=== PATIENT | male | born 1960 | race Caucasian/White ===

== ENCOUNTER 2023-03-18 03:22 | Outpatient (CLI) | payer OTHER, SELFPAY | END 2023-03-18 03:23 | disposition home or self-care (01) | LOC: AMB 03-30 03:00 | PROVIDERS: PCP Student in an Organized Health Care Education/Training Program; Visit Provider Family Medicine | DX: S99.911A Unspecified injury of right ankle, initial encounter (principal); S09.90XA Unspecified injury of head, initial encounter; W18.30XA Fall on same level, unspecified, initial encounter; Y92.008 Other place in unspecified non-institutional (private) residence as the place of occurrence of the external cause | CPT/HCPCS: A0425; A0429 ==

== ENCOUNTER 2023-03-18 03:55 | Inpatient (IN) | payer OTHER, SELFPAY ==
[2023-03-18] VITALS (38 sets, daily range): BP systolic 95–164; BP diastolic 60–130; PULSE 41–88; RESP 9–33; TEMP 35.8–36.6; O2SAT 88–100; BMI 23.0
--- NOTE | 2023-03-18 04:15 | CRLHL7_ITS ---
For Patients: As a result of the Century Cures Act, medical imaging exams and procedure reports are released immediately into your electronic medical record. You may view this report before your referring provider. If you have questions, please contact your health care provider. INDICATION: Injury COMPARISON: April 23, 2020 TECHNIQUE: CT examination of the cervical spine is performed without contrast using spiral technique. Thin axial, sagittal and coronal reconstructions were made. Please note that all CT scans at this facility use dose modulation, iterative reconstruction, and/or weight-based dosing when appropriate to reduce radiation dose to as low as reasonably achievable. FINDINGS: : Bone mineral density is decreased. There is an incidental osseous hemangioma of the T5 vertebral body. Significant degenerative changes are noted mainly of the mid and lower cervical spine. A 2 millimeter degenerative anterolisthesis of C4 on C5 is noted. There is no acute fracture, dislocation or destructive process. Incidental atherosclerotic vascular calcifications. A small amount of fluid is noted in the mastoids, likely inflammatory. IMPRESSION: No acute fracture, dislocation or destructive process Please note that all CT scans at this facility use dose modulation, iterative reconstruction, and/or weight-based dosing when appropriate to reduce radiation dose to as low as reasonably achievable. Dictated by Collins Lara MD @ 03/18/2023 5:44:14 AM (Electronically Signed)
--- NOTE | 2023-03-18 04:15 | CRLHL7_ITS ---
For Patients: As a result of the Century Cures Act, medical imaging exams and procedure reports are released immediately into your electronic medical record. You may view this report before your referring provider. If you have questions, please contact your health care provider. INDICATION: Unwitnessed fall COMPARISON: April 23, 2020 TECHNIQUE: CT examination of the head was performed as axial sections without intravenous contrast. Images were obtained from the vertex of the skull through the skull base. Please note that all CT scans at this facility use dose modulation, iterative reconstruction, and/or weight-based dosing when appropriate to reduce radiation dose to as low as reasonably achievable. FINDINGS: The brain shows no sign of mass lesion, mass effect, hemorrhage, or edema. There are involutional changes. There is moderate cortical atrophy and there is moderate white matter disease. There is no hydrocephalus. There is cerebellar atrophy. Nonacute subcortical infarcts are noted. The visualized portions of the orbits are normal in appearance. The osseous structures are normal in appearance with no sign of abnormality in the skull base or calvarium. The overall appearance of the CT is stable when compared to April 23, 2020 IMPRESSION: Involutional changes. No acute-appearing findings. Similar overall appearance when compared to April 23, 2020. Please note that all CT scans at this facility use dose modulation, iterative reconstruction, and/or weight-based dosing when appropriate to reduce radiation dose to as low as reasonably achievable. Dictated by Collins Lara MD @ 03/18/2023 5:36:32 AM (Electronically Signed)
--- NOTE | 2023-03-18 04:15 | CRLHL7_ITS ---
For Patients: As a result of the Century Cures Act, medical imaging exams and procedure reports are released immediately into your electronic medical record. You may view this report before your referring provider. If you have questions, please contact your health care provider. Indication: Injury Technique: A total of two views of the right tibia and fibula were acquired. Comparison: None Findings: Bones: Demineralization. Acute oblique fracture of the distal tibia. Minimally displaced by about 3 millimeters maximum. There is also probably an oblique fracture of the distal fibula notice on inferior whether this is acute or chronic. A fracture line is visible in this area. Consider a formal three-view ankle exam Joint spaces: Unremarkable. Soft tissues: Extensive soft tissue calcifications Impression: Acute oblique fracture of the distal tibia, minimally displaced. Distal fibular fracture age indeterminate. Consider a three-view ankle for better evaluation of the distal fibula. Extensive vascular and soft tissue calcifications noted Dictated by Collins Lara MD @ 03/18/2023 5:29:11 AM (Electronically Signed)
--- NOTE | 2023-03-18 04:21 | ED_ITS ---
HPI - Fall General Chief Complaint: Fall/Minor Trauma Stated Complaint: fall, altered mental status, Ankle Pain Time Seen by Provider: 03/18/23 04:01 Source: patient, family and EMS History of Present Illness HPI Narrative: 8-year-old male with a history of MS presents to the emergency department with altered mental status after a fall. Apparently his called 911 after he fell in the home. Reports that he was coming back from the computer room. He gives extremely limited history, very limited history was obtained by EMS as well. It sounds as though they thought the may be intoxicated and may not be a very accurate historian. Apparently, the patient fell sometime tonight. It is uncertain if he is on anticoagulants. He has been complaining of right ankle pain, no other injuries. He answers questions very poorly and has difficulty maintaining alertness. EMS gives no other history other than that he has MS. We non do not know his medications but will attempt to failure these out. Denies any recent surgeries. It is quite clear he has had toe amputations and homes or abdominal surgery based on surgical scarring. Again, very limited history. ROS is not considered reliable but he does deny all concerns with the exception of right ankle pain. PFSH PFS Social History Smoking Status: Former smoker Non-prescribed substance use: marijuana (any form) Exam Const: Vital Signs, click to edit/add: Vital Signs - 24 hr 03/18/23 03:59 03/18/23 05:13 03/18/23 05:20 Temperature 96.5 F L Pulse Rate 45 L 44 L Pulse Rate [Right Pulse Oximeter] 55 L Respiratory Rate 16 Blood Pressure Blood Pressure [Le ft Upper Arm] 118/71 Pulse Oximetry 98 89 88 Oxygen Delivery Me thod Room Air 03/18/23 05:23 03/18/23 05:30 03/18/23 05:31 Temperature Pulse Rate 55 L 45 L 48 L Pulse Rate [Right Pulse Oximeter] Respiratory Rate 24 20 Blood Pressure 137/87 139/84 Blood Pressure [Le ft Upper Arm] Pulse Oximetry 100 98 91 Oxygen Delivery Me thod 03/18/23 05:32 03/18/23 05:40 03/18/23 05:41 Temperature Pulse Rate 47 L 44 L 42 L Pulse Rate [Right Pulse Oximeter] Respiratory Rate 21 22 33 H Blood Pressure 124/65 Blood Pressure [Le ft Upper Arm] Pulse Oximetry 94 91 96 Oxygen Delivery Pr thod 03/18/23 05:50 03/18/23 05:52 03/18/23 06:00 Temperature Pulse Rate 41 L 52 L 59 L Pulse Rate [Right Pulse Oximeter] Respiratory Rate 28 H 19 12 Blood Pressure 164/124 H Blood Pressure [Le ft Upper Arm] Pulse Oximetry 95 100 96 Oxygen Delivery Pr thod 03/18/23 06:02 03/18/23 06:10 03/18/23 06:13 Temperature Pulse Rate 55 L 48 L 61 Pulse Rate [Right Pulse Oximeter] Respiratory Rate 22 20 14 Blood Pressure 160/128 H 133/76 Blood Pressure [Le ft Upper Arm] Pulse Oximetry 93 98 98 Oxygen Delivery Pr thod 03/18/23 06:20 03/18/23 06:22 03/18/23 06:30 Temperature Pulse Rate 50 L 48 L 46 L Pulse Rate [Right Pulse Oximeter] Respiratory Rate 20 Blood Pressure 136/81 Blood Pressure [Le ft Upper Arm] Pulse Oximetry 97 98 94 Oxygen Delivery Pr thod 03/18/23 06:32 03/18/23 06:40 03/18/23 06:42 Temperature Pulse Rate 49 L 52 L 58 L Pulse Rate [Right Pulse Oximeter] Respiratory Rate 10 L 13 15 Blood Pressure 135/83 130/96 H Blood Pressure [Le ft Upper Arm] Pulse Oximetry 96 99 93 Oxygen Delivery Pr thod 03/18/23 06:50 Temperature Pulse Rate Pulse Rate [Right Pulse Oximeter] Respiratory Rate 21 Blood Pressure Blood Pressure [Le ft Upper Arm] Pulse Oximetry 92 [facility] provider has reviewed patient's vital signs: yes Other: Decreased alertness. Repetitive answers. Will follow commands when you get his attention. Global weakness. HENMT: Other: Slight abrasions on the forehead, no large deformities or skull fractures. No signs of significant facial injury. I cannot get to his TMs due to the positioning of the C-collar at the moment. Oropharynx with acyanotic lips, moist membranes. Eye: Common normals: PERRL and EOMs intact bilaterally Pupil: PERRL Neck & C-Spine: Other: C-collar in place. No obvious deformity or point tenderness with palpation through windows. Chest: Common normals: inspection of chest normal and palpation of chest no rmal Resp: Common normals: normal respiratory effort, no use of accessory muscles and clear to auscultation bilaterally Auscultation: clear to auscultation bilaterally Other: Decreased at the bases but no obvious crackles. 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 Various abrasions on lower legs, no obvious deformity. He can flex extend and rotate the right ankle with no difficulty. There is no obvious point bony tenderness to palpation. The range of motion in the left ankle appears normal with no point bony tenderness as well. Neuro: Antonio Coma Scale: document GCS findings [place] coma scale eye opening: To sound (3) Antonio coma scale verbal response: Confused (4) [place] coma scale motor response: Obey commands (6) Antonio coma scale total score: 13 Other: Global generalized weakness makes neurological exam difficult to interpret. It does not seem as though there is an obvious focal singular deficit. Will need re-evaluation. Psych: Other: Mildly unkempt. Healed abrasions in various stages of healing. Polite and cooperative but difficulty maintaining full alertness. Skin: Narrative: Superficial abrasions and bruises in various stages of healing. Extremities, forehead. Course Course Hospital Course: Differential diagnosis including intoxication, closed head injury, intracranial hemorrhage, C-spine injury, metabolic etiology such as sepsis, electrolyte derangement, infection, among others. Biggest concern for head and neck injury. Will begin with CT scan of the head and neck as well as x-ray of the ankle. Labs to look for any cause of altered mental status, repeat evaluation. IV will be placed, normal saline given. Await findings. Will need admission. Reevaluation(s) Time of Reevaluation #1: 05:40 Reevaluation #1: Patient becoming more alert. Mild asymptomatic bradycardia noted. IV fluids have been started. He admits to drinking a couple of beverages of alcohol earlier in the night but admits to the marijuana use, no other illicit substances. He is unable to clearly tell me his last meal. He is complaining of a headache and does maintain alertness better. Ortho will be paged. Time of Reevaluation #2: 06:21 Reevaluation #2: Bradycardia is improving with fluids, patient will maintain alertness a little bit longer but is still overall drowsier than would be expected. He keeps mentioning headache. He keeps freely moving his leg, getting it stuck between the bed rails. I actually do wonder about the acuity of this fracture. Ortho team is informing me that they would like to take him to the operating room promptly, I do not think this is a good idea due to his altered mental status which I do think is more from drug intoxication than medical etiology after review of the labs. Would encourage a period of observation, oral pain control if needed, then operative repair. He will likely need longterm facility. I suspect that he is having neurological decline based on his head CT and overall functional status here in the ED. There lots of abrasions to his legs, I suspect he is falling frequently. I suspect that this fracture is actually not acute, may be several days old. Thankfully there is no evidence of cervical spine or intracranial hemorrhage or injury. I will communicate this to the Orthopedics team. Vital Signs Vital signs: Initial Vital Signs Temperature 96.5 F L 03/18/23 03:59 Temperature Source Temporal Artery Scan 03/18/23 03:59 Pulse Rate 55 L 03/18/23 03:59 Pulse Rhythm Regular 03/18/23 03:59 Respiratory Rate 16 03/18/23 03:59 Blood Pressure 118/71 03/18/23 03:59 Blood Pressure Mean 86 03/18/23 03:59 Blood Pressure Position Semi-Fowlers 03/18/23 03:59 Pulse Oximetry 98 03/18/23 03:59 Oxygen Delivery Method Room Air 03/18/23 03:59 Vital Signs Temperature 96.5 F L 03/18/23 03:59 Pulse Rate 55 L 03/18/23 03:59 Respiratory Rate 16 03/18/23 03:59 Blood Pressure 118/71 03/18/23 03:59 Pulse Oximetry 98 03/18/23 03:59 Oxygen Delivery Method Room Air 03/18/23 03:59 Temperature 96.5 F L 03/18/23 03:59 Pulse Rate 58 L 03/18/23 06:42 Respiratory Rate 21 03/18/23 06:50 Blood Pressure 130/96 H 03/18/23 06:42 Pulse Oximetry 92 03/18/23 06:50 Oxygen Delivery Method Room Air 03/18/23 03:59 MDM - Fall MDM Narrative Medical decision making narrative: Differential diagnosis including fracture, head injury, cervical spine injury, metabolic derangement, intoxication, among others. Update: Accepted by hospitalist, will admit for acute delirium. I do not feel like in his current state that he can consent for surgical procedure just yet but hopefully within a few more hours his mentation clears and surgery can be planned. Lab Data Attestation: I reviewed the patient's lab results. Lab results narrative: Reassuring overall Labs: Lab Results 03/18/23 03/18/23 Range/Units 04:17 04:20 WBC 8.62 (4.50-11.00) K/uL RBC 4.57 (4.30-5.90) m/uL Hgb 12.5 L (13.5-17.5) gm/dL Hct 39.6 (37.0-53.0) % MCV 87 (80-100) fL MCH 27 (26-34) pg MCHC 32 (32-36) gm/dL RDW Coeff of Na 14.7 (11.5-15.5) % Plt Count 232 (140-440) K/uL Neut % (Auto) 81.9 H (42.0-72.0) % Lymph % (Auto) 8.8 L (20-44) % [place] % (Auto) 7.3 (0.0-11.0) % Eos % (Auto) 1.6 (0.0-7.0) % Baso % (Auto) 0.3 (0.0-3.0) % Neut # (Auto) 7.10 H (1.7-7.0) K/uL Lymph # (Auto) 0.80 L (0.90-2.90) K/uL [place] # (Auto) 0.60 (0.00-0.90) K/UL Eos # (Auto) 0.14 (0.00-0.50) K/uL Baso # (Auto) 0.03 (0.00-0.30) K/uL VBG pH 7.347 (7.32-7.43) VBG pCO2 38 L (40-50) mmHG VBG pO2 63.8 H (25-47) mmHG VBG HCO3 21 (21-28) mmol/L Sodium 140 (135-149) mmol/L Potassium 4.3 (3.6-5.1) mmol/L Chloride 109 (96-114) mmol/L Carbon Dioxide 19 L (20-32) mmol/L BUN 20 (7-30) mg/dL Creatinine 1.2 (0.5-1.5) mg/dL Estimated GFR 69 ml/min Glucose 88 (60-115) mg/dL Lactate 0.8 (0.5-1.9) mmol/L Calcium 9.0 (8.4-10.6) mg/dL Total Bilirubin 0.7 (0.1-1.5) mg/dL AST 36 H (12-35) U/L ALT 15 (4-50) U/L Alkaline Phosphatase 112 (40-150) U/L Ammonia < 9.0 L (13.1-30.0) umol/L C-Reactive Protein 0.6 (0.5-1.0) mg/dL Total Protein 6.7 (6.0-8.3) g/dL Albumin 4.1 (3.3-5.0) g/dL Ethyl Alcohol < 0.01 L (0.01-0.03) % POC Troponin I 0.00 L (0.01-0.04) ng/ml Imaging Data CT scan - head: Attestation: I have reviewed the pertinent imaging results. My impression: Marked degenerative changes for age but no signs of acute intracranial hemorrhage or skull fracture Radiologist's impression: IMPRESSION: Involutional changes. No acute-appearing findings. Similar overall appearance when compared to April 23, 2020. CT cervical spine: Attestation: I have reviewed the pertinent imaging results. My impression: Mild degenerative changes, otherwise normal Radiologist's impression: IMPRESSION: No acute fracture, dislocation or destructive process X-ray tibia right: Attestation: I have reviewed the pertinent imaging results. My impression: Tib-fib fracture fairly well aligned. Radiologist's impression: Impression: Acute oblique fracture of the distal tibia, minimally displaced. Distal fibular fracture age indeterminate. Consider a three-view ankle for better evaluation of the distal fibula. Extensive vascular and soft tissue calcifications noted ECG Data Attestation: I personally reviewed and interpreted this ECG as follows: Prior ECG tracings: not available for review Interpretation: Sinus bradycardia, rate 44-57. No obvious ischemic changes noted. Discharge Plan Discharge Clinical Impression: Acute delirium, Closed fracture of right tibia and fibula Follow Up/Referrals: Mil Dasilva MD [Primary Care Provider] -
[2023-03-18 04:42] LABS: HCO3 VBG 21 mmol/L (21-28); Lactate* 0.8 mmol/L (0.5-1.9); PCO2 VBG 38 mmHG (40-50); PO2 VBG 63.8 mmHG (25-47); pH VBG 7.347 (7.32-7.43)
[2023-03-18 04:45] LABS: Hematocrit 39.6 % (37.0-53.0); Hemoglobin* 12.5 gm/dL (13.5-17.5); Mean Corpuscular HGB Conc 32 gm/dL (32-36); Mean Corpuscular Hemoglobin 27 pg (26-34); Mean Corpuscular Volume 87 fL (80-100); Neutrophils Percent Auto 81.9 % (42.0-72.0); Platelet Count* 232 K/uL (140-440); RDW Coefficient of Variation % 14.7 % (11.5-15.5); Red Blood Count 4.57 m/uL (4.30-5.90); White Blood Count* 8.62 K/uL (4.50-11.00)
[2023-03-18 04:46] LABS: Basophils Absolute Auto 0.03 K/uL (0.00-0.30); Basophils Percent Auto 0.3 % (0.0-3.0); Eosinophils Absolute Auto 0.14 K/uL (0.00-0.50); Eosinophils Percent Auto 1.6 % (0.0-7.0); Immature Granulocytes Abs Auto 0.01 K/uL (0.00-0.30); Immature Granulocytes Pct Auto 0.1 %; Lymphocytes Percent Auto 8.8 % (20-44); Monocytes Percent Auto 7.3 % (0.0-11.0)
[2023-03-18 04:50] LABS: Slide Review Reflex No
[2023-03-18 04:59] LABS: Albumin* 4.1 g/dL (3.3-5.0); Chloride* 109 mmol/L (96-114)
[2023-03-18 05:00] LABS: Potassium* 4.3 mmol/L (3.6-5.1); Sodium* 140 mmol/L (135-149)
[2023-03-18 05:02] LABS: Bilirubin Total* 0.7 mg/dL (0.1-1.5); Creatinine* 1.2 mg/dL (0.5-1.5); Estimated Glomerular Filt Rate 69 ml/min
[2023-03-18 05:03] LABS: Alanine Aminotransferase* 15 U/L (4-50); Alkaline Phosphatase* 112 U/L (40-150); Aspartate Amino Transferase* 36 U/L (12-35); Blood Urea Nitrogen* 20 mg/dL (7-30); Carbon Dioxide* 19 mmol/L (20-32); Glucose* 88 mg/dL (60-115); Total Protein* 6.7 g/dL (6.0-8.3)
[2023-03-18 05:05] LABS: C Reactive Protein* 0.6 mg/dL (0.5-1.0)
[2023-03-18 05:08] LABS: Ethanol* < 0.01 % (0.01-0.03)
[2023-03-18 05:09] LABS: Ammonia* < 9.0 umol/L (13.1-30.0)
[2023-03-18] MEDS: 0.9 % SODIUM CHLORIDE 500 ML 500 ML 1000 ML IV (06:27)
[2023-03-18] MEDS: ACETAMINOPHEN 500 MG TABLET 1000 MG PO (06:43)
--- NOTE | 2023-03-18 07:45 | ED.NURSE ---
pt aroused to voice and a shake. pt oriented and remembers falling at home. pt starts becoming restless in bed, pt moving R lower extremity all over, keeps putting R foot through bed rails. changed pt into gown, placed seizure pad on bed so pt can't put foot through rail. elevated R foot and ice applied. repositioned pt for comfort. pt said he needs to go to bathroom, gave pt urinal. pt difficulty holding urinal and urinating so straight cathed pt for 300 cc clear yellow urine, sample sent to lab. remains restless in bed.
[2023-03-18 08:07] LABS: Appearance Urine Clear (Clear); Bilirubin Urine Negative (Negative); Blood Urine Trace-lysed (Negative); Color Urine Yellow (Yellow); Glucose Urine Negative (Negative); Ketones Urine Trace (Negative); Leukocyte Esterase Urine Negative (Negative); Nitrite Urine Negative (Negative); Protein Urine Negative (Negative); Urobilinogen Urine 0.2 (0.2-1.0); pH Urine 5.5 (5.0-8.5)
[2023-03-18] MEDS: OXYCODONE 5 MG TABLET PO ×2 (08:13→17:22)
[2023-03-18 08:14] LABS: Amphetamine Screen Urine Negative (Negative); Barbiturate Screen Urine Negative (Negative); Benzodiazepines Screen Urine Negative (Negative); Cocaine Screen Urine Negative (Negative); Methadone Screen Urine Negative (Negative); Methamphetamines Screen Urine Negative (Negative); Opiate Screen Urine Negative (Negative); Oxycodone Screen Urine Negative (Negative); Phencyclidine Screen Urine Negative (Negative); Tricyclic Antidepressant Urine Negative (Negative)
[2023-03-18 08:16] LABS: Cannabinoid Screen Urine POSITIVE (Negative)
[2023-03-18 08:22] LABS: Bacteria Urine Few; Mucus Urine Few; Squamous Epithelial Cell Urine Few (None-Few); WBC Urine 0-2 (0-5)
--- NOTE | 2023-03-18 10:01 | RESP.RT ---
Patient SATing 100% on 1L NC. Patient weaned to room air. Patient is still hard to stimulate, but appears to have a normal RR. When he is laying flat on his back he does have apnic periods, but he is currently sleeping on his side.
[2023-03-18] MEDS: LACTATED RINGERS 1000 ML 1,000 ML 125 ML IV ×2 (11:00→21:15)
[2023-03-18] MEDS: SODIUM CHLORIDE 0.9 % (FLUSH) 10 ML SYRINGE 5 ML IVF (11:00)
--- NOTE | 2023-03-18 11:27 | P.IMHP_ITS ---
Hospitalist- H&P: HPI History of Present Illness Time Seen by Provider: 07:15 Date Seen: 03/18/23 Chief complaint: Right ankle pain and altered level of mentation Narrative: Tom Ruibo is a 62 year old man with known multiple sclerosis and chronic non intractable headache who presents to our emergency department after his called 911 subsequent to a fall that he sustained in the home. Patient's altered mental status makes it difficult to obtain meaningful history from him. According to the EMS staff who responded to the 's call, they were unable to obtain a meaningful history from the also, they indicated that she seemed to be intoxicated when they were there responding to her call to help her . When I 1st see the patient this morning he is sound asleep and not arousable, except for to deep pain stimuli and then he promptly falls asleep again. Between my efforts, the efforts of the emergency department nursing staff, and our emergency department physician's efforts, we are able to ascertain that he may have consumed 2 cans of beer last night and he did smoke marijuana. It is unclear if he took his usual medications. He denies taking any medications or drugs other than his usual medications. Subsequently I assess the patient often on throughout the morning. Over time it gradually becomes more arousable. He again claims he has no recall of when or how he fell. He has no recall of being brought to our emergency department this morning. Although I tell him that he is in the hospital and that we are monitoring him to make certain that he arouses before we can obtain consent to treat his right distal tib-fib fracture, he reiterates that he is not certain what is going on or why he is here and that he wishes to go home as soon as possible. Review of Systems Status of ROS: Reports: 10 or more systems reviewed and unremarkable except as noted in History and below Narrative: Denies chest heaviness, pressure, tightness, or pain. Denies dyspnea at rest, dyspnea with exertion, paroxysmal nocturnal dyspnea, orthopnea. Denies syncope or near-syncope. Denies lightheadedness, dizziness, vertigo. He has little recall of the last several hours. Does not recall falling despite having skin superficial abrasions on his forehead and top of the scalp, and abrasions on his right elbow, both knees, shins, right foot. Initially indicates he does not ordinarily have falls. Later tells me that actually he does have falls at home intermittently. Denies abdominal pain, nausea, vomiting, diarrhea. Denies dysuria, urgency, frequency, hematuria. Denies polyuria, polydipsia, polyphagia. Denies fevers, rigors, diaphoresis. No recent travel. Acknowledges drinking alcohol regularly. Denies alcohol withdrawal symptoms. Smokes marijuana regularly as well. Denies use of any other street or recreational drugs. 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 (ICD-10) Lumbar spondylosis ?M47.816 - Spondylosis without myelopathy or radiculopathy, lumbar region (ICD-10) Abscess of right thigh ?L02.415 - Cutaneous abscess of right lower limb (ICD-10) Amputation of right great toe ?S98.111A - Complete traumatic amputation of right great toe, initial encounter (ICD-10) Chronic pain of right ankle ?M25.571 - Pain in right ankle and joints of right foot (ICD-10) ?G89.29 - Other chronic pain (ICD-10) Generalized hyperhidrosis ?R61 - Generalized hyperhidrosis (ICD-10) Seasonal allergies ?J30.2 - Other seasonal allergic rhinitis (ICD-10) Bilateral shoulder pain ?M25.511 - Pain in right shoulder (ICD-10) ?M25.512 - Pain in left shoulder (ICD-10) Optic atrophy ?H47.20 - Unspecified optic atrophy (ICD-10) Multiple pulmonary nodules ?R91.8 - Other nonspecific abnormal finding of lung field (ICD-10) Insomnia ?G47.00 - Insomnia, unspecified (ICD-10) History of falling ?Z91.81 - History of falling (ICD-10) Unstable gait ?R26.81 - Unsteadiness on feet (ICD-10) Ataxia ?R27.0 - Ataxia, unspecified (ICD-10) Anemia ?D64.9 - Anemia, unspecified (ICD-10) Sleep pattern disturbance ?G47.20 - Circadian rhythm sleep disorder, unspecified type (ICD-10) Obstructive sleep apnea ?G47.33 - Obstructive sleep apnea (adult) (pediatric) (ICD-10) Chronic headaches ?R51.9 - Headache, unspecified (ICD-10) ?G89.29 - Other chronic pain (ICD-10) Raynaud's syndrome ?I73.00 - Raynaud's syndrome without gangrene (ICD-10) Habitual alcohol use ?F10.90 - Alcohol use, unspecified, uncomplicated (ICD-10) Vapes nicotine containing substance ?Z72.0 - Tobacco use (ICD-10) Former smoker ?Z87.891 - Personal history of nicotine dependence (ICD-10) Essential hypertension ?I10 - Essential (primary) hypertension (ICD-10) Displacement of lumbar intervertebral disc without myelopathy ?M51.26 - Other intervertebral disc displacement, lumbar region (ICD-10) Lumbar disc herniation with radiculopathy ?M51.16 - Intervertebral disc disorders with radiculopathy, lumbar region (ICD-10) Multiple sclerosis ?G35 - Multiple sclerosis (ICD-10) Bilateral inguinal hernia ?K40.20 - Bilateral inguinal hernia, without obstruction or gangrene, not specified as recurrent (ICD-10) Surgical History Status post vasectomy ?Z98.52 - Vasectomy status (ICD-10) Status post amputation of right great toe ?Z89.411 - Acquired absence of right great toe (ICD-10) Hx of bursectomy ?Z98.890 - Other specified postprocedural states (ICD-10) S/P bilateral inguinal herniorrhaphy ?Z98.890 - Other specified postprocedural states (ICD-10) ?Z87.19 - Personal history of other diseases of the digestive system (ICD-10) S/p bilateral carpal tunnel release ?Z98.890 - Other specified postprocedural states (ICD-10) Status post left hip replacement ?Z96.642 - Presence of left artificial hip joint (ICD-10) Family History Father Diabetes Social History What is your current living situation: unable to answer Problems where you live: unable to answer In the past 12 months, utilities in danger of being shut off: unable to answer In the past 12 mos, have been you worried that your food would run out before you had money to buy more?: unable to answer In the past 12 mos, the food you bought just didn't last and you didn't have money to buy more?: unable to answer Highest level of school completed/degree received: decline to answer Smoking Status: Current every day smoker Do you use any of these nicotine containing products: Vaping Products Smokeless tobacco user: other Smokeless tobacco user details: marijuana Second hand tobacco smoke exposure: No How many standard drinks containing alcohol do you have on a typical day: 5 or 6 How often do you have six or more drinks on one occasion: Daily or almost daily AUDIT-C Alcohol total score: 6 Non-prescribed substance use: marijuana (any form) Non-prescribed substance use details: from medical hx How often does anyone, including family, friends and others, physically hurt you : How often does anyone, including family, friends and others, insult or talk down to you: How often does anyone, including family, friends and others, threaten you with harm: How often does anyone, including family, friends and others, scream or curse at you: service: No Meds Home Medications and Allergies Home Medications Medication Instructions Recorded Confirmed Type baclofen 20 mg tablet 40 mg PO TID 03/18/23 03/18/23 History gabapentin 400 mg capsule 1,200 mg PO TID 03/18/23 03/18/23 History ibuprofen 800 mg tablet 800 mg PO TID 03/18/23 03/18/23 History metoprolol tartrate 50 mg tablet 50 mg PO BID 03/18/23 03/18/23 History trazodone 100 mg tablet 100 mg PO QPM 03/18/23 03/18/23 History Allergies Allergy/AdvReac Type Severity Reaction Status Date / Time No Known Drug Allergies Allergy Verified 03/18/23 08:21 Exam Narrative: Exam Narrative: Appears older than stated age. When I 1st meet him he is somnolent and very difficult to arouse except for with deep pain. Corneal reflexes intact. Absent gag reflex. Had apneic breathing pattern when I 1st assessed him, not breathing up to 10-15 seconds at times, followed by rapid breathing - known to have obstructive sleep apnea. In time he is awake and talkative and interactive. He is able to swallow without gagging. Anxious, poor insight into his present situation and circumstances. No recall of events of last several hours, nature of the fall that caused his right distal tib-fib fracture, how he arrived at the hospital. Mood and affect are congruent. Vision and hearing are grossly normal. Dry buccal mucosa with dentition in fair repair. Tympanic membranes are normal bilaterally. Midline trachea, normal thyroid. No JVD, hepatojugular reflux, or carotid bruits. No lymphadenopathy. Lungs are clear to auscultation without wheezing, rhonchi, or rales. No CVA tenderness. Heart tones with regular rhythm, normal S1-S2, soft systolic murmur left lower sternal border. PMI is not laterally displaced. Abdomen with active bowel sounds, soft, nontender. No rebound or guarding. Skin with abrasions on forehead, top of scalp, partially around right eye orbit, right elbow, both knees, post shins, right foot. Also has ecchymosis of various ages on both upper and lower extremities. Very difficult for him to transfer. Needs assist of 2. Blood alcohol level is nonmeasurable. Urine toxicology screen is negative except for marijuana. Const: Vital Signs, click to edit/add: Vital Signs - 24 hr 03/18/23 03:59 03/18/23 05:13 03/18/23 05:20 Temperature 96.5 F L Pulse Rate 45 L 44 L Pulse Rate [Left A pical] Pulse Rate [Right Pulse Oximeter] 55 L Respiratory Rate 16 Blood Pressure Blood Pressure [Le ft Upper Arm] 118/71 Blood Pressure [Ri ght Arm] Pulse Oximetry 98 89 [facility] 03/18/23 05:23 03/18/23 05:30 03/18/23 05:31 Temperature Pulse Rate 55 L 45 L 48 L Pulse Rate [Left A pical] Pulse Rate [Right Pulse Oximeter] Respiratory Rate 24 20 Blood Pressure 137/87 139/84 Blood Pressure [Le ft Upper Arm] Blood Pressure [Ri ght Arm] Pulse Oximetry 100 98 91 Oxygen Delivery Me thod 03/18/23 05:32 03/18/23 05:40 03/18/23 05:41 Temperature Pulse Rate 47 L 44 L 42 L Pulse Rate [Left A pical] Pulse Rate [Right Pulse Oximeter] Respiratory Rate 21 22 33 H Blood Pressure 124/65 Blood Pressure [Le ft Upper Arm] Blood Pressure [Ri ght Arm] Pulse Oximetry 94 91 [facility] 03/18/23 05:50 03/18/23 05:52 03/18/23 06:00 Temperature Pulse Rate 41 L 52 L 59 L Pulse Rate [Left A pical] Pulse Rate [Right Pulse Oximeter] Respiratory Rate 28 H 19 12 Blood Pressure 164/124 H Blood Pressure [Le ft Upper Arm] Blood Pressure [Ri ght Arm] Pulse Oximetry 95 100 96 [facility] 03/18/23 06:02 03/18/23 06:10 03/18/23 06:13 Temperature Pulse Rate 55 L 48 L 61 Pulse Rate [Left A pical] Pulse Rate [Right Pulse Oximeter] Respiratory Rate 22 20 14 Blood Pressure 160/128 H 133/76 Blood Pressure [Le ft Upper Arm] Blood Pressure [Ri ght Arm] Pulse Oximetry 93 98 98 [facility] 03/18/23 06:20 03/18/23 06:22 03/18/23 06:30 Temperature Pulse Rate 50 L 48 L 46 L Pulse Rate [Left A pical] Pulse Rate [Right Pulse Oximeter] Respiratory Rate 20 Blood Pressure 136/81 Blood Pressure [Le ft Upper Arm] Blood Pressure [Ri ght Arm] Pulse Oximetry 97 98 94 [facility] 03/18/23 06:32 03/18/23 06:40 03/18/23 06:42 Temperature Pulse Rate 49 L 52 L 58 L Pulse Rate [Left A pical] Pulse Rate [Right Pulse Oximeter] Respiratory Rate 10 L 13 15 Blood Pressure 135/83 130/96 H Blood Pressure [Le ft Upper Arm] Blood Pressure [Ri ght Arm] Pulse Oximetry 96 99 93 [facility] 03/18/23 06:50 03/18/23 06:52 03/18/23 07:00 Temperature Pulse Rate 50 L 52 L Pulse Rate [Left A pical] Pulse Rate [Right Pulse Oximeter] Respiratory Rate 21 11 L 10 L Blood Pressure 137/82 Blood Pressure [Le ft Upper Arm] Blood Pressure [Ri ght Arm] Pulse Oximetry 92 97 93 [facility] 03/18/23 07:01 03/18/23 07:02 03/18/23 07:20 Temperature Pulse Rate 50 L 47 L 46 L Pulse Rate [Left A pical] Pulse Rate [Right Pulse Oximeter] Respiratory Rate 9 L 10 L 10 L Blood Pressure 104/65 Blood Pressure [Le ft Upper Arm] Blood Pressure [Ri ght Arm] Pulse Oximetry 94 93 92 Oxygen Delivery [facility] 03/18/23 07:22 03/18/23 07:40 03/18/23 07:42 Temperature Pulse Rate 47 L 61 61 Pulse Rate [Left A pical] Pulse Rate [Right Pulse Oximeter] Respiratory Rate 10 L 18 17 Blood Pressure 95/60 163/93 H Blood Pressure [Le ft Upper Arm] Blood Pressure [Ri ght Arm] Pulse Oximetry 93 100 100 Oxygen Delivery [facility] 03/18/23 08:00 03/18/23 08:02 03/18/23 09:52 Temperature Pulse Rate 59 L 56 L Pulse Rate [Left A pical] Pulse Rate [Right Pulse Oximeter] Respiratory Rate 16 16 Blood Pressure 144/130 H Blood Pressure [Le ft Upper Arm] Blood Pressure [Ri ght Arm] Pulse Oximetry 98 97 99 [facility] 03/18/23 09:52 03/18/23 09:52 Temperature 97.8 F Pulse Rate Pulse Rate [Left A pical] 45 L Pulse Rate [Right Pulse Oximeter] Respiratory Rate 16 16 Blood Pressure Blood Pressure [Le ft Upper Arm] Blood Pressure [Ri ght Arm] 119/83 Pulse Oximetry 99 99 Oxygen Delivery Me od Room Air Room Air Documenting provider has reviewed patient's vital signs: yes Hospitalist - H&P: Result Labs Labs: Short CBC 03/18/23 Range/Units 04:20 WBC 8.62 (4.50-11.00) K/uL Hgb 12.5 L (13.5-17.5) gm/dL Hct 39.6 (37.0-53.0) % Plt Count 232 (140-440) K/uL BMP 03/18/23 04:20 Sodium 140 Potassium 4.3 Chloride 109 Carbon Dioxide 19 L BUN 20 Creatinine 1.2 Glucose 88 Calcium 9.0 Liver Function 03/18/23 Range/Units 04:20 Total Bilirubin 0.7 (0.1-1.5) mg/dL AST 36 H (12-35) U/L ALT 15 (4-50) U/L Alkaline Phosphatase 112 (40-150) U/L Albumin 4.1 (3.3-5.0) g/dL Urine 03/18/23 Range/Units 04:15 Urine Color Yellow (Yellow) Urine Appearance Clear (Clear) Urine pH 5.5 (5.0-8.5) Ur Specific [place] 1.020 (1.000-1.030) Urine Protein Negative (Negative) Urine Glucose (UA) Negative (Negative) ECG Attestation: I personally reviewed and interpreted this ECG as follows: ECG interpretation date: 03/18/23 ECG interpretation time: 07:30 Prior ECG tracings: not available for review Interpretation: Sinus bradycardia without ischemic changes. Is on the beta-yakelin metoprolol. Imaging CT scan - head: Attestation: I have reviewed the pertinent imaging results. Radiologist's impression: IMPRESSION: Involutional changes. No acute-appearing findings. Similar overall appearance when compared to April 23, 2020. CT- Other: Attestation: I have reviewed the pertinent imaging results. Radiologist's impression: CT of cervical spine: IMPRESSION: No acute fracture, dislocation or destructive process Right tib fib x-ray: Attestation: I have reviewed the pertinent imaging results. Radiologist's impression: Impression: Acute oblique fracture of the distal tibia, minimally displaced. Distal fibular fracture age indeterminate. Consider a three-view ankle for better evaluation of the distal fibula. Extensive vascular and soft tissue calcifications noted Assessment and Plan Assessment and plan (1) Closed fracture of right tibia and fibula: Status: Acute (2) Acute delirium: Problem comment: Multifactorial: Polypharmacy, marijuana, alcohol use. I doubt, but possible concussion Status: Acute (3) Multiple sclerosis: Status: Acute (4) Ataxia: Status: Acute (5) History of falling: Status: Acute (6) Habitual alcohol use: Status: Acute (7) Obstructive sleep apnea: Status: Acute (8) Sinus bradycardia: Problem comment: Due to metoprolol use. Status: Acute Plan 1. Reviewed impression with our emergency department physician, Dr. Renner. 2. Orthopedic surgery, Dr. James Dc, has consulted on patient. 3. When patient mentation is closer to baseline and can give consent to proceed with surgical repair, will notify our orthopedic surgeon. 4. IV fluids. NPO. 5. Analgesics and antiemetics. 6. Hold off on beta-yakelin. 7. Hold off on his other medications which could profoundly affect his mentation for now. 8. Physical therapy, occupational therapy, health care social worker consultation. 9. Did discuss with respiratory therapy in regard to my concern for his breathing pattern. 10. Patient agreeable with above stated plans and recommendations once he is finally waking up for me to have a meaningful discussion with him.
--- NOTE | 2023-03-18 12:56 | CRLHL7_ITS ---
For Patients: As a result of the Century Cures Act, medical imaging exams and procedure reports are released immediately into your electronic medical record. You may view this report before your referring provider. If you have questions, please contact your health care provider. Indication: Evaluate distal fibula Comparison: None available. Technique: AP, Lateral, and Oblique views right ankle ankle were obtained Findings: There is a fracture of the distal fibula as well as the distal tibia with likely acute on chronic fracture of the distal fibula with demonstration of likely a healed callus. The ankle mortise is symmetrical. The talar dome is smooth and intact. The joint spaces are otherwise grossly preserved. There is moderate malleolar soft tissue swelling. Impression: Acute fracture of the distal tibia with likely acute on chronic fracture of the distal fibula with moderate soft tissue swelling. Dictated by Feliberto Guevara MD @ 03/18/2023 4:20:56 PM (Electronically Signed)
--- NOTE | 2023-03-18 16:02 | PC.NURSE ---
Pt admitted for altered mental status and right femur fracture from ED via stretcher at 0823 am. Pt restless and confused initially, however he later fell asleep on his right side. Continuous pulse ox. Multiple abrasions, scratches and skin tears noted on bilateral LE. Pt fell at home, bed alarm engaged. NPO. Tele indicates sinus bradycardia with BBB. Plan surgical repair of RLE tomorrow. Surgical packet placed on front of the chart. Bladder scanned for 235cc d/to restlessness. IV site redressed by Catalino BEVERLY and reinforced site with coban. LR at 125cc/hr infusing as maintenance fluid. Pt voided 350cc via urinal on day shift. Pt remains impulsive and tries to sit on edge of bed and forgets to not put any weight on his right lower extremity. Admission completed by primary RN with the help of medical record as pt is unable to respond/answer most of the questions. RN did not administer narcotics to pt d/to his AMS @ admission. Pt spoke with his on the phone this afternoon. He is slightly more coherent than at time of admission. Report to Emilia BEVERLY for evening shift.
--- NOTE | 2023-03-18 16:32 | REH.OT ---
OT: Order received, hold awaiting plan with ortho and with tox screen. Will follow up tomorrow.
[2023-03-18] MEDS: ACETAMINOPHEN 325 MG TABLET 650 MG PO (17:22)
--- NOTE | 2023-03-18 22:10 | PC.NURSE ---
Addendum entered by Emilia Mcgraw RN 03/19/23 14:31: Patient voids large amounts independently. Diaz not placed. Original Note: Shift [id number]- Patient seems to nap some in bed this afternoon, but is mostly awake, alert and oriented throughout shift. He remains NWB to right lower extremity. TEDs and SCDs applied to left lower extremity. He declines to order meal tray. He verbally gives permission for update to be given to , Shannan, which was done. Pain appears well-controlled with PRN medication- see eMAR.
[2023-03-19] VITALS (17 sets, daily range): BP systolic 110–157; BP diastolic 58–100; PULSE 52–85; RESP 16–20; TEMP 35.9–36.8; O2SAT 99–197
[2023-03-19] MEDS: LACTATED RINGERS 1000 ML 1,000 ML 125 ML IV (05:01)
[2023-03-19] MEDS: OXYCODONE 5 MG TABLET PO ×2 (05:35→17:57)
--- NOTE | 2023-03-19 06:59 | PC.NURSE ---
Shift note: Pt is doing well. Maintained on NWB to the right leg. Pt complained of pain of 5/10 this morning and Oxycodone 5mg given. Vitally stable. Instructed on the need to maintain NPO for possible surgery today. Had adequate sleep.
--- NOTE | 2023-03-19 08:40 | W.ANESCHARGE ---
Anesthesia Charges Start Date/Time Anesthesia Start Date: 03/19/23 Anesthesia Start Time: 09:00 Stop Date/Time Anesthesia Stop Date: 03/19/23 Anesthesia Stop Time: 12:37
--- NOTE | 2023-03-19 08:45 | CRLHL7_ITS ---
For Patients: As a result of the Cures Act, medical imaging exams and procedure reports are released immediately into your electronic medical record. You may view this report before your referring provider. If you have questions, please contact your health care provider. Indication: RIGHT TIB-FIB FX Technique: Ten fluoroscopic images of the right tibia and fibula. Fluoroscopic time 289.4 seconds. IMPRESSION: Fluoroscopic guidance for open reduction internal fixation distal tibial fracture. Dictated by Mil Dupree MD @ 03/19/2023 12:50:54 PM (Electronically Signed)
--- NOTE | 2023-03-19 08:54 | W.PM.NB ---
Nerve Block Nerve Block Time Seen by Provider: 08:54 Date Seen: 03/19/23 Type of block requested by surgeon for post-operative analgesia: popliteal Time out performed: Yes Verification of patient name: Yes Verification of date of : Yes Site marking: site marked Name of person performing procedure: Chris Continuous monitoring Was continuous monitoring of O2 sat, B/P, school lunch monitor, recorded every 15 minutes?: Yes Procedure Checklist: sterile prep, needles and gloves Ultrasound guided. Images saved: Yes Medications given in 5ml increments after negative aspiration: Ropivicaine %: 0.5 mL: 20 Needle gauge: 22 Patient tolerated procedure well: Yes Additional comments: Needle noted adjacent to nerve Block Charges Block Charge (with Pro Fee): Sciatic Nerve Use of Ultrasound Machine for Block: Yes- US Guidance/pain block
--- NOTE | 2023-03-19 08:54 | W.PM.NB ---
Nerve Block Nerve Block Time Seen by Provider: 08:55 Date Seen: 03/19/23 Type of block requested by surgeon for post-operative analgesia: adductor canal Side: right Time out performed: Yes Verification of patient name: Yes Verification of date of : Yes Site marking: site marked Name of person performing procedure: Chris Continuous monitoring Was continuous monitoring of O2 sat, B/P, patient monitor, recorded every 15 minutes?: Yes Procedure Checklist: sterile prep, needles and gloves Ultrasound guided. Images saved: Yes Medications given in 5ml increments after negative aspiration: Ropivicaine %: 0.5 mL: 20 Needle gauge: 20 Patient tolerated procedure well: Yes Additional comments: Needle noted adjacent to nerve Block Charges Block Charge (with Pro Fee): Femoral Nerve Use of Ultrasound Machine for Block: Yes- US Guidance/pain block
--- NOTE | 2023-03-19 09:11 | SUR.PREOP ---
TIME?OUT:?7871 PT/Tika Wilson RN/Dr. Chris MDA?VERIFICATION?OF?SURGICAL?SITE right leg,?PROCEDURE,?AND?CONSENT OBTAINED?PRIOR?TO?INVASIVE?PROCEDURE.
[2023-03-19] MEDS: CEFAZOLIN 2 GM INJ IVP (09:31)
[2023-03-19] MEDS: LACTATED RINGERS 1000 ML 1,000 ML 75 ML IV (09:35)
[2023-03-19] MEDS: MIDAZOLAM HCL 1 MG/ML inj IVP (09:46)
[2023-03-19] MEDS: fentaNYL 100 MCG/2 ML inj IVP (09:46)
--- NOTE | 2023-03-19 12:05 | P.ORCN_ITS ---
History of Present Illness HPI Date Seen: 03/19/23 Requesting physician: Wayne Wright Chief complaint: Right ankle pain and altered level of mentation Narrative: Dr. Wright has requested orthopedic consultation for right tibia fracture. The patient is a 8-year-old patient with multiple sclerosis, ambulates with a cane. He injured his right leg, sustaining a closed distal 1/3 tibial shaft fracture. He was admitted for further workup and management. He had acute delirium which has since resolved. He is now medically cleared for surgery. He states he has never injured this leg or had surgery on it previously. 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 (ICD-10) Lumbar spondylosis ?M47.816 - Spondylosis without myelopathy or radiculopathy, lumbar region (ICD-10) Abscess of right thigh ?L02.415 - Cutaneous abscess of right lower limb (ICD-10) Amputation of right great toe ?S98.111A - Complete traumatic amputation of right great toe, initial encounter (ICD-10) Chronic pain of right ankle ?M25.571 - Pain in right ankle and joints of right foot (ICD-10) ?G89.29 - Other chronic pain (ICD-10) Generalized hyperhidrosis ?R61 - Generalized hyperhidrosis (ICD-10) Seasonal allergies ?J30.2 - Other seasonal allergic rhinitis (ICD-10) Bilateral shoulder pain ?M25.511 - Pain in right shoulder (ICD-10) ?M25.512 - Pain in left shoulder (ICD-10) Optic atrophy ?H47.20 - Unspecified optic atrophy (ICD-10) Multiple pulmonary nodules ?R91.8 - Other nonspecific abnormal finding of lung field (ICD-10) Insomnia ?G47.00 - Insomnia, unspecified (ICD-10) History of falling ?Z91.81 - History of falling (ICD-10) Unstable gait ?R26.81 - Unsteadiness on feet (ICD-10) Ataxia ?R27.0 - Ataxia, unspecified (ICD-10) Anemia ?D64.9 - Anemia, unspecified (ICD-10) Sleep pattern disturbance ?G47.20 - Circadian rhythm sleep disorder, unspecified type (ICD-10) Obstructive sleep apnea ?G47.33 - Obstructive sleep apnea (adult) (pediatric) (ICD-10) Chronic headaches ?R51.9 - Headache, unspecified (ICD-10) ?G89.29 - Other chronic pain (ICD-10) Raynaud's syndrome ?I73.00 - Raynaud's syndrome without gangrene (ICD-10) Habitual alcohol use ?F10.90 - Alcohol use, unspecified, uncomplicated (ICD-10) Vapes nicotine containing substance ?Z72.0 - Tobacco use (ICD-10) Former smoker ?Z87.891 - Personal history of nicotine dependence (ICD-10) Essential hypertension ?I10 - Essential (primary) hypertension (ICD-10) Displacement of lumbar intervertebral disc without myelopathy ?M51.26 - Other intervertebral disc displacement, lumbar region (ICD-10) Lumbar disc herniation with radiculopathy ?M51.16 - Intervertebral disc disorders with radiculopathy, lumbar region (ICD-10) Multiple sclerosis ?G35 - Multiple sclerosis (ICD-10) Bilateral inguinal hernia ?K40.20 - Bilateral inguinal hernia, without obstruction or gangrene, not specified as recurrent (ICD-10) Surgical History Status post vasectomy ?Z98.52 - Vasectomy status (ICD-10) Status post amputation of right great toe ?Z89.411 - Acquired absence of right great toe (ICD-10) Hx of bursectomy ?Z98.890 - Other specified postprocedural states (ICD-10) S/P bilateral inguinal herniorrhaphy ?Z98.890 - Other specified postprocedural states (ICD-10) ?Z87.19 - Personal history of other diseases of the digestive system (ICD-10) S/p bilateral carpal tunnel release ?Z98.890 - Other specified postprocedural states (ICD-10) Status post left hip replacement ?Z96.642 - Presence of left artificial hip joint (ICD-10) Family History Father Diabetes Social History What is your current living situation: I presently have a place to live Problems where you live: unable to answer In the past 12 months, utilities in danger of being shut off: unable to answer In the past 12 mos, have been you worried that your food would run out before you had money to buy more?: unable to answer In the past 12 mos, the food you bought just didn't last and you didn't have money to buy more?: unable to answer Highest level of school completed/degree received: decline to answer Smoking Status: Current every day smoker Do you use any of these nicotine containing products: Vaping Products Smokeless tobacco user: other Smokeless tobacco user details: marijuana Second hand tobacco smoke exposure: No How many standard drinks containing alcohol do you have on a typical day: 5 or 6 How often do you have six or more drinks on one occasion: Daily or almost daily AUDIT-C Alcohol total score: 6 Non-prescribed substance use: marijuana (any form) Non-prescribed substance use details: from medical hx How often does anyone, including family, friends and others, physically hurt you : How often does anyone, including family, friends and others, insult or talk down to you: How often does anyone, including family, friends and others, threaten you with harm: How often does anyone, including family, friends and others, scream or curse at you: service: No Meds Home Medications and Allergies Home Medications Medication Instructions Recorded Confirmed Type baclofen 20 mg tablet 40 mg PO TID 03/18/23 03/18/23 History gabapentin 400 mg capsule 1,200 mg PO TID 03/18/23 03/18/23 History ibuprofen 800 mg tablet 800 mg PO TID 03/18/23 03/18/23 History metoprolol tartrate 50 mg tablet 50 mg PO BID 03/18/23 03/18/23 History trazodone 100 mg tablet 100 mg PO QPM 03/18/23 03/18/23 History Allergies Allergy/AdvReac Type Severity Reaction Status Date / Time benzocaine Allergy Verified 03/19/23 09:21 Ortho Exam Narrative Exam Narrative: The patient is alert and oriented x3, in no acute distress, they are able to converse in a normal speaking voice without obvious hearing loss and with nonlabored breathing. The patient is examined supine in the hospital bed. The right lower extremity is not in a splint. There are no surgical scars. The compartments are soft. CMS to the foot is normal. There is no tenderness over the lateral malleolus. Const Vital Signs, click to edit/add: Vital Signs - 24 hr 03/18/23 13:50 03/18/23 16:27 03/18/23 16:27 Temperature 97.3 F L 97 F L Pulse Rate Pulse Rate [Left Apical] 88 56 L Pulse Rate [Left Pulse Oximeter] Respiratory Rate 18 16 Blood Pressure Blood Pressure [Right Arm] 123/86 140/88 H Pulse Oximetry 99 96 96 Oxygen Delivery Method Room Air Room Air Room Air Oxygen Flow Rate 03/18/23 17:07 03/18/23 19:00 03/18/23 23:00 Temperature 98 F Pulse Rate 53 L 64 Pulse Rate [Left Apical] 61 Pulse Rate [Left Pulse Oximeter] Respiratory Rate 18 Blood Pressure Blood Pressure [Right Arm] 146/82 H Pulse Oximetry 99 Oxygen Delivery Method Room Air Oxygen Flow Rate 03/18/23 23:00 03/18/23 23:00 03/18/23 23:00 Temperature 97.4 F L Pulse Rate Pulse Rate [Left Apical] 53 L 53 L Pulse Rate [Left Pulse Oximeter] Respiratory Rate 18 18 18 Blood Pressure Blood Pressure [Right Arm] 139/83 Pulse Oximetry 99 99 Oxygen Delivery Method Room Air Room Air Oxygen Flow Rate 03/19/23 03:00 03/19/23 07:00 03/19/23 07:00 Temperature 97.4 F L Pulse Rate Pulse Rate [Left Apical] 58 L Pulse Rate [Left Pulse Oximeter] 54 L Respiratory Rate 18 18 18 Blood Pressure Blood Pressure [Right Arm] 134/66 Pulse Oximetry 99 100 Oxygen Delivery Method Room Air Room Air Oxygen Flow Rate 03/19/23 07:00 03/19/23 08:38 03/19/23 08:48 Temperature 98.3 F Pulse Rate 54 L 63 Pulse Rate [Left Apical] Pulse Rate [Left Pulse Oximeter] 54 L Respiratory Rate 18 18 18 Blood Pressure 140/98 H 145/73 H Blood Pressure [Right Arm] 141/67 H Pulse Oximetry 100 100 100 Oxygen Delivery Method Room Air Nasal Cannula Nasal Cannula Oxygen Flow Rate 2 2 03/19/23 08:50 Temperature Pulse Rate 54 L Pulse Rate [Left Apical] Pulse Rate [Left Pulse Oximeter] Respiratory Rate 18 Blood Pressure 121/58 L Blood Pressure [Right Arm] Pulse Oximetry 197 H Oxygen Delivery Method Nasal Cannula Oxygen Flow Rate 2 Results Labs Labs: Laboratory Results - last 48 hr 03/18/23 03/18/23 03/18/23 04:15 04:17 04:20 WBC 8.62 RBC 4.57 Hgb 12.5 L Hct 39.6 MCV 87 MCH 27 MCHC 32 RDW Coeff of Na 14.7 Plt Count 232 Neut % (Auto) 81.9 H Lymph % (Auto) 8.8 L [place] % (Auto) 7.3 Eos % (Auto) 1.6 Baso % (Auto) 0.3 Neut # (Auto) 7.10 H Lymph # (Auto) 0.80 L [place] # (Auto) 0.60 Eos # (Auto) 0.14 Baso # (Auto) 0.03 VBG pH 7.347 VBG pCO2 38 L VBG pO2 63.8 H VBG HCO3 21 Sodium 140 Potassium 4.3 Chloride 109 Carbon Dioxide 19 L BUN 20 Creatinine 1.2 Estimated GFR 69 Glucose 88 Lactate 0.8 Calcium 9.0 Total Bilirubin 0.7 AST 36 H ALT 15 Alkaline Phosphatase 112 Ammonia < 9.0 L C-Reactive Protein 0.6 Total Protein 6.7 Albumin 4.1 Urine Color Yellow Urine Appearance Clear Urine pH 5.5 Ur Specific [place] 1.020 Urine Protein Negative Urine Glucose (UA) Negative Urine Ketones Trace A Urine Blood Trace-lysed A Urine Nitrite Negative Urine Bilirubin Negative Urine Urobilinogen 0.2 Ur Leukocyte Esterase Negative Urine RBC 2-5 A Urine WBC 0-2 Ur Squamous Epith Cells Few Urine Bacteria Few A Urine Mucus Few A Urine Opiates Screen Negative Ur Oxycodone Screen Negative Urine Methadone Screen Negative Ur Propoxyphene Screen Negative Ur Barbiturates Screen Negative U Tricyclic Antidepress Negative Ur Phencyclidine Scrn Negative Ur Amphetamines Screen Negative U Methamphetamines Scrn Negative U Benzodiazepines Scrn Negative Urine Cocaine Screen Negative U Marijuana (THC) Screen POSITIVE A* Ur Drug Screen Comment See Note Ethyl Alcohol < 0.01 L POC Troponin I 0.00 L Diagnostic results Additional Comments: AP and lateral views of the right tibia show a spiral oblique fracture of the distal 1/3 of the tibial shaft. There is a subacute Boyer B fibula fracture. Medial mortise and syndesmotic relationships remain normal. Assessment and Plan Assessment and plan (1) Closed fracture of right tibia and fibula: Status: Acute Total time spent: Total time spent is greater than 50% in coordination of care (as documented) at patient's floor/unit and/or counseling patient: (2) Acute delirium: Problem comment: Multifactorial: Polypharmacy, marijuana, alcohol use. I doubt, but possible concussion Status: Acute Total time spent: Total time spent is greater than 50% in coordination of care (as documented) at patient's floor/unit and/or counseling patient: (3) Multiple sclerosis: Status: Acute Total time spent: Total time spent is greater than 50% in coordination of care (as documented) at patient's floor/unit and/or counseling patient: (4) Ataxia: Status: Acute Total time spent: Total time spent is greater than 50% in coordination of care (as documented) at patient's floor/unit and/or counseling patient: (5) History of falling: Status: Acute Total time spent: Total time spent is greater than 50% in coordination of care (as documented) at patient's floor/unit and/or counseling patient: (6) Habitual alcohol use: Status: Acute Total time spent: Total time spent is greater than 50% in coordination of care (as documented) at patient's floor/unit and/or counseling patient: (7) Obstructive sleep apnea: Status: Acute Total time spent: Total time spent is greater than 50% in coordination of care (as documented) at patient's floor/unit and/or counseling patient: (8) Sinus bradycardia: Problem comment: Due to metoprolol use. Status: Acute Total time spent: Total time spent is greater than 50% in coordination of care (as documented) at patient's floor/unit and/or counseling patient: Plan Assessment: Closed distal 1/3 right lower extremity tibial shaft fracture Subacute right ankle fracture Plan: The patient is now medically cleared for surgery. Therefore, we will plan to take him to the operating today for intramedullary nailing of his right tibial shaft fracture.
--- NOTE | 2023-03-19 12:05 | PM.ORPRC ---
Procedure Note Date of procedure: 03/19/23 Procedure: PREOPERATIVE DIAGNOSIS: Right distal 1/3 tibial shaft fracture POSTOPERATIVE DIAGNOSIS: Right distal 1/3 tibial shaft fracture NAME OF OPERATION: IM nailing tibia fracture SURGEON: Marco Cabrera MD [employer] APPRENTICE: Carmen Fonseca PA-C IMPLANTS: Synthes intramedullary nail 10 mm x 345 mm with 2 proximal and 4 distal interlocking screws ANESTHESIA: Spinal ESTIMATED BLOOD LOSS: 200 mL COMPLICATIONS: None SPECIMENS: None DRAINS: None PREOPERATIVE ANTIBIOTICS: Ancef 2 g INDICATIONS: The patient is a 62-year-old male who injured his right leg. He was diagnosed with a tibia fracture. He was admitted for definitive care. The risks, benefits and expected outcomes were discussed in detail. These included but were not limited to: Infection, bleeding, injury to blood vessel or nerve, venous thromboembolism. All questions were answered to their satisfaction. Use of an assistant banquet manager was necessary for patient positioning and safety, soft tissue retraction and closure, dressing application, and transfer of the patient to and from the hospital bed to the fracture table. PROCEDURE: Spinal anesthesia was administered. The patient was placed supine on the operating room table. The extremity was prepped and draped in the usual sterile fashion. The limb was exsanguinated, the pneumatic tourniquet was inflated to 300 mm of mercury. An incision was made just medial to midline over the anterior aspect of the knee. Subcutaneous dissection sharply taken to the retinaculum. The retinaculum was divided just medial to the patellar tendon. The awl was placed in the entry point of the tibia using the image intensifier in both the AP and lateral views. It was taken into the canal. We then placed the ball-tipped guide nataliya into the proximal fragment. The fracture was held reduced by the assistant banquet manager and the guide nataliya was taken across the fracture site engaging the central portion of the distal fragment. The tourniquet was released. The opening reamer was used. We enlarged in 1.0 mm increments. We stopped at 11.5 mm with good cortical chatter. Length was measured. The IM nail was tapped into place. The reduction remains excellent. Two static proximal interlocking screws were placed. We then placed 4 distal interlocking screws using a freehand technique. This consists of 2 medial lateral, 1 anterior posterior and 1 anteromedial to posterolateral oblique. This construct was evaluated with the image intensifier in the AP and lateral views at the knee, fracture site and ankle. Our reduction was felt to be anatomic with well placed implants. A 10 mm end cap was placed on the nail. Soft tissue compartments are soft at the end of the case. The wounds were irrigated with normal saline. The medial retinaculum was closed with an 0 Vicryl. Subcutaneous tissues with Vicryl, skin with a running subcuticular Monocryl. Glue was used to seal the skin. A bulky Johnathan Loo splint was applied. All done by the assistant banquet manager. Sponge and needle counts were correct x2. The patient tolerated the procedure well. There were no apparent complications. They were carefully transferred to the hospital bed and taken to the postanesthesia care unit in satisfactory condition. PLAN: The patient will be mobilized with physical therapy. They will be nonweightbearing on the left lower extremity. Aspirin will be used for DVT prophylaxis. They will be discharged home once medically appropriate.
--- NOTE | 2023-03-19 12:47 | W.ANESCHARGE ---
Anesthesia Charges Start Date/Time Anesthesia Start Date: 03/19/23 Anesthesia Start Time: 09:00 Stop Date/Time Anesthesia Stop Date: 03/19/23 Anesthesia Stop Time: 12:37
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
[2023-03-19] MEDS: CEFAZOLIN 2 GM in 0.9 % SODIUM CHLORIDE Mini-bag 100 ML IVPB (15:47)
--- NOTE | 2023-03-19 16:27 | P.DS_ITS ---
DS: Providers Provider Time Seen by Provider: 16:30 Date Seen: 03/19/23 Date of admission: 03/19/23 08:51 Primary care physician: RASHID MILLER DO Admitting Clinician: Wayne Wright MD Consults: 03/18/23 09:52 Consult to Occupational Therapy [CONS] Routine Comment: Reason(s) for OT Consult:: Evaluate and Treat Any Restrictions?:: See Comment Comment: R ankle fx; h/o MS Consult to Physical Therapy [CONS] Routine Comment: Reason(s) for PT Consult:: Evaluate and Treat Any Restrictions?:: See Comment Comment: R ankle fx; h/o MS Consult to Respiratory Therapy [CONS] Routine Comment: Reason(s) for RT Consult:: Consult Consult to Electric Power Line Examiner [CONS] Routine Comment: Reason for Consult:: Social Service Consult 03/18/23 10:13 Consult to Occupational Therapy [CONS] Routine Comment: Reason(s) for OT Consult:: Evaluate and Treat Any Restrictions?:: Non Wt Bearing Comment: right Consult to Physical Therapy [CONS] Routine Comment: Reason(s) for PT Consult:: Evaluate and Treat Any Restrictions?:: Non Wt Bearing 03/19/23 12:01 Consult to Physical Therapy [CONS] Stat Comment: Reason(s) for PT Consult:: Evaluate and Treat Any Restrictions?:: Non Wt Bearing Attending Physician on discharge: Wayne Wright MD Date of Discharge: 03/19/23 DS: Diagnosis Discharge Diagnosis (1) Closed fracture of right tibia and fibula: Status: Acute (2) Acute delirium: Status: Acute Problem details: Multifactorial: Polypharmacy, marijuana, alcohol use. I doubt, but possible concussion (3) History of falling: Status: Acute (4) Ataxia: Status: Acute (5) Multiple sclerosis: Status: Acute (6) Habitual alcohol use: Status: Acute (7) Obstructive sleep apnea: Status: Acute (8) Sinus bradycardia: Status: Acute Problem details: Due to metoprolol use. DS: Summary Hospital Course Hospital Course: History of present illness: Tom Rubio is a 62 year old man with known multiple sclerosis and chronic non intractable headache who presents to our emergency department after his called 911 subsequent to a fall that he sustained in the home.? Patient's altered mental status makes it difficult to obtain meaningful history from him.? According to the EMS staff who responded to the 's call, they were unable to obtain a meaningful history from the also, they indicated that she seemed to be intoxicated when they were there responding to her call to help her . When I 1st see the patient this morning he is sound asleep and not arousable, except for to deep pain stimuli and then he promptly falls asleep again.? Between my efforts, the efforts of the emergency department nursing staff, and our emergency department physician's efforts, we are able to ascertain that he may have consumed 2 cans of beer last night and he did smoke marijuana.? It is unclear if he took his usual medications.? He denies taking any medications or drugs other than his usual medications. Subsequently I assess the patient often on throughout the morning.? Over time it gradually becomes more arousable.? He again claims he has no recall of when or how he fell.? He has no recall of being brought to our emergency department this morning.? Although I tell him that he is in the hospital and that we are monitor ing him to make certain that he arouses before we can obtain consent to treat his right distal tib-fib fracture, he reiterates that he is not certain what is going on or why he is here and that he wishes to go home as soon as possible. Hospital course: On date of admission his level of consciousness inability to appropriately interact with those around him improved substantially. Patient was able to give informed consent to proceed with surgical management of his tib-fib fracture. This was undertaken on the date of discharge 03/19/2023. Orthopedic surgery indicated that he could be discharged. There is no medical indication or contraindication for him to not be discharged. Thus he is discharged home with tib-fib fracture care and follow-up per Orthopedic surgery. I did hold his usual medications that he takes at home while here in the hospital. These are resumed at time of discharge. Did discuss with him the possibility that the gabapentin and beta-yakelin combination may have contributed to his acute delirium on presentation. I do recommend that he has appropriate follow-up with his primary care physician given his presentation with acute delirium. Discussed need to avoid alcohol intoxication, marijuana intoxication, or misuse of his prescribed medications. Status at Discharge Cognitive/behavioral status at discharge: Cognitively he is back to baseline at discharge. Physically, he has a long wait to go before he gets back to his baseline given his acute fracture and the surgical management of the same. Functional status at discharge: uses cane/walker Overall status at discharge: patient is progressing back to baseline Time Spent with Patient Time attestation: Total time spent providing and/or coordinating discharge services: Time spent: Greater than 30 minutes Exam Narrative: Exam Narrative: He appears comfortable in no acute distress. Alert and oriented to self, place, time, and situation. He still has little recall of many of the events that transpired yesterday which culminated in him being admitted to the hospital for management of this fracture. He still does not recall how it is that he fractured his leg. He is insistent on being discharged home today. He states he has to go home to help care for his . He insists that he can take care of himself and his . Lungs remain clear to auscultation. Heart tones with regular rhythm, normal S1-S2. Abdomen with active bowel sounds, soft, nontender. Right leg has large splint in place status post surgical repair of the same. Orders for care of this are per Orthopedic surgery. Orders for weight-bearing, physical therapy, occupational therapy per Orthopedic surgery. Const: Vital Signs, click to edit/add: Vital Signs - 24 hr 03/18/23 17:07 03/18/23 19:00 03/18/23 23:00 Temperature 98 F Pulse Rate 53 L 64 Pulse Rate [Left A pical] 61 Pulse Rate [Left P ulse Oximeter] Respiratory Rate 18 Blood Pressure Blood Pressure [Ri [facility] Arm] 146/82 H Pulse Oximetry 99 Oxygen Delivery Me thod Room Air Oxygen Flow Rate 03/18/23 23:00 03/18/23 23:00 03/18/23 23:00 Temperature 97.4 F L Pulse Rate Pulse Rate [Left A pical] 53 L 53 L Pulse Rate [Left P ulse Oximeter] Respiratory Rate 18 18 18 Blood Pressure Blood Pressure [Ri [facility] Arm] 139/83 Pulse Oximetry 99 99 Oxygen Delivery Me thod Room Air Room Air Oxygen Flow Rate 03/19/23 03:00 03/19/23 07:00 03/19/23 07:00 Temperature 97.4 F L Pulse Rate Pulse Rate [Left A pical] 58 L Pulse Rate [Left P ulse Oximeter] 54 L Respiratory Rate 18 18 18 Blood Pressure Blood Pressure [Ri t Arm] 134/66 Pulse Oximetry 99 100 Oxygen Delivery Me thod Room Air Room Air Oxygen Flow Rate 03/19/23 07:00 03/19/23 08:38 03/19/23 08:48 Temperature 98.3 F Pulse Rate 54 L 63 Pulse Rate [Left A pical] Pulse Rate [Left P ulse Oximeter] 54 L Respiratory Rate 18 18 18 Blood Pressure 140/98 H 145/73 H Blood Pressure [Ri ght Arm] 141/67 H Pulse Oximetry 100 100 100 Oxygen Delivery Me thod Room Air Nasal Cannula Nasal Cannula Oxygen Flow Rate 2 2 03/19/23 08:50 03/19/23 12:34 03/19/23 12:40 Temperature 97.4 F L Pulse Rate 54 L 52 L 53 L Pulse Rate [Left A pical] Pulse Rate [Left P ulse Oximeter] Respiratory Rate 18 16 16 Blood Pressure 121/58 L 135/80 138/81 Blood Pressure [Ri ght Arm] Pulse Oximetry 197 H 100 100 Oxygen Delivery Me thod Nasal Cannula Room Air Room Air Oxygen Flow Rate 2 2 03/19/23 12:45 03/19/23 12:50 03/19/23 12:55 Temperature 97.4 F L 97.4 F L Pulse Rate 55 L 58 L 69 Pulse Rate [Left A pical] Pulse Rate [Left P ulse Oximeter] Respiratory Rate 16 16 16 Blood Pressure 134/80 132/74 110/77 Blood Pressure [Ri ght Arm] Pulse Oximetry 99 100 100 Oxygen Delivery Me thod Room Air Room Air Room Air Oxygen Flow Rate 03/19/23 13:00 03/19/23 13:25 Temperature 97.7 F Pulse Rate 65 67 Pulse Rate [Left A pical] Pulse Rate [Left P ulse Oximeter] Respiratory Rate 16 Blood Pressure 139/76 Blood Pressure [Ri ght Arm] Pulse Oximetry 100 Oxygen Delivery Me thod Room Air Oxygen Flow Rate 2 Documenting provider has reviewed patient's vital signs: yes DS: Data Data Completed and Pending Labs on day of discharge: Preliminary micro results at discharge 03/18/23 10:10 Blood Culture - Preliminary Blood NO GROWTH AFTER 24 HOURS 03/18/23 10:10 Blood Culture - Preliminary Blood NO GROWTH AFTER 24 HOURS 03/18/23 08:23 Urine Culture - Preliminary Urine Catheterized NO GROWTH AFTER 24 HOURS 03/18/23 04:35 Blood Culture - Preliminary Blood NO GROWTH AFTER 24 HOURS 03/18/23 04:20 Blood Culture - Preliminary Blood NO GROWTH AFTER 24 HOURS Imaging X-ray of right tib-fib: Attestation: I have reviewed the pertinent imaging results. Radiologist's impression: 03/18/2023 Impression: Acute oblique fracture of the distal tibia, minimally displaced. Distal fibular fracture age indeterminate. Consider a three-view ankle for better evaluation of the distal fibula. Extensive vascular and soft tissue calcifications noted 03/19/2023 Impression: Acute oblique fracture of the distal tibia, minimally displaced. Distal fibular fracture age indeterminate. Consider a three-view ankle for better evaluation of the distal fibula. Extensive vascular and soft tissue calcifications noted X-ray of right ankle: Attestation: I have reviewed the pertinent imaging results. Radiologist's impression: Impression: Acute fracture of the distal tibia with likely acute on chronic fracture of the distal fibula with moderate soft tissue swelling. CT scan - head: Attestation: I have reviewed the pertinent imaging results. Radiologist's impression: 03/18/2023 IMPRESSION: Involutional changes. No acute-appearing findings. Similar overall appearance when compared to April 23, 2020. CT- Other: Attestation: I have reviewed the pertinent imaging results. Radiologist's impression: CT scan of cervical spine, 03/18/2023 FINDINGS: : Bone mineral density is decreased. There is an incidental osseous hemangioma of the T5 vertebral body. Significant degenerative changes are noted mainly of the mid and lower cervical spine. A 2 millimeter degenerative anterolisthesis of C4 on C5 is noted. There is no acute fracture, dislocation or destructive process. Incidental atherosclerotic vascular calcifications. A small amount of fluid is noted in the mastoids, likely inflammatory. IMPRESSION: No acute fracture, dislocation or destructive process Discharge Plan Discharge Disposition: Home, Self-Care Date of Admission: 03/19/23 08:51 Attending Provider on Discharge: Wayne Wrigth Consulting Providers: Marco Cabrera Primary Care Provider: RASHID MILLER Condition: Improved Anticipated Discharge Date/Time: 03/19/23 17:30 Discharge Medications: New acetaminophen 500 mg capsule 500 - 1,000 mg PO Q6H MDD 4000mg per day PRN (Reason: pain) Qty: 100 0RF oxycodone 5 mg Tablet 2.5 mg PO Q4-6H MDD 6 tabs per day PRN (Reason: Pain) Qty: 15 0RF Rx Instructions: Minimize. Discontinue as soon as possible sennosides [Senna Lax] 8.6 mg Tablet 17.2 mg PO BID PRN (Reason: constipation) Qty: 100 0RF Continued gabapentin 400 mg capsule 1,200 mg PO TID ibuprofen 800 mg tablet 800 mg PO TID baclofen 20 mg tablet 40 mg PO TID metoprolol tartrate 50 mg tablet 50 mg PO BID trazodone 100 mg tablet 100 mg PO QPM Discharge Orders: Discharge Order (Routine); Ordered 03/19/23 Ordered By: Margie Mckoy Consulting provider completed their portion of the discharge: Yes Patient Education: Oxycodone, Rapid Release (By mouth), Senna (By mouth) (Sen, Senna-lax), Ankle Fracture (DC), Abuse of Alcohol (GEN), Acute Delirium (GEN) Activity Detail: nonweight bearing Rt lower extremity. Do not use drugs/alcohol while using narcotic pain medication. Minimize narcotic pain medication, especially be cautious since you are using high doses of Gabapentin. Discontinue narcotic pain medication as soon as possible. Do not drive. Move about every hour throughout the day. Elevate right lower extremity and use ice as needed. Call Orthopedics with any questions or concerns. [phone]. See Orthopedics in one week. Please make appt [phone] Discharge Diet: Regular Follow Up Appointments: Mil Dasilva MD [Referring] - RASHID MILLER DO [Primary Care Provider] - 03/26/23 11:00 am (For episode of acute delirium and right tib/fib fx [facility]) Forms: [employer] Info Instructions
[2023-03-19] MEDS: ACETAMINOPHEN 325 MG TABLET 650 MG PO (17:58)
--- NOTE | 2023-03-19 20:07 | PC.NURSE ---
Nursing Care Hours: [id number] Pt this shift cooperative, negative statements, flat affect. C/o 02/20 before and after surgery, treated per eMAR. Left for OR beginning of shift, arrived back to unit around 1315, alert and oriented. Pt asking when he can go home. States he helps take care of . Up with PT to the chair, tolerated well. No nausea or SOB. Some mottling on upper bilat legs. Pt states he is cold and is seen shivering. Warm blankets provided. Mild shivering noted rest of stay. VSS. Surgeon and Hospitalist cleared pt for discharge, instructions on care and preventing complications given. Instructed on not using drugs or drinking alcohol while taking narcotics. Family able to pick up truck driver prescriptions before picking up pt. IV removed, pt wheeled out to vehicle in stable condition.
== END 2023-03-19 19:05 | disposition home or self-care (01) | DRG 494 ==
LOC: ED 06:30 → MEDSURG 08:16
PROVIDERS: Orthopaedic Surgery; Admitting Provider Internal Medicine; Emergency Provider Family Medicine; PCP Student in an Organized Health Care Education/Training Program; Visit Provider Internal Medicine
DX: S82.301A Unspecified fracture of lower end of right tibia, initial encounter for closed fracture (principal); S82.831A Other fracture of upper and lower end of right fibula, initial encounter for closed fracture; W19.XXXA Unspecified fall, initial encounter; Y92.009 Unspecified place in unspecified non-institutional (private) residence as the place of occurrence of the external cause; G35 Multiple sclerosis; R00.1 Bradycardia, unspecified; R41.0 Disorientation, unspecified; Z91.81 History of falling; R27.0 Ataxia, unspecified; R51.9 Headache, unspecified; G47.33 Obstructive sleep apnea (adult) (pediatric); I10 Essential (primary) hypertension; S00.01XA Abrasion of scalp, initial encounter; S00.81XA Abrasion of other part of head, initial encounter; S50.311A Abrasion of right elbow, initial encounter; S80.212A Abrasion, left knee, initial encounter; S80.211A Abrasion, right knee, initial encounter; S80.812A Abrasion, left lower leg, initial encounter; S80.811A Abrasion, right lower leg, initial encounter; S90.811A Abrasion, right foot, initial encounter; F10.90 Alcohol use, unspecified, uncomplicated; F12.90 Cannabis use, unspecified, uncomplicated; M47.896 Other spondylosis, lumbar region; I73.00 Raynaud's syndrome without gangrene; Z89.411 Acquired absence of right great toe; M51.16 Intervertebral disc disorders with radiculopathy, lumbar region; G89.18 Other acute postprocedural pain
CPT/HCPCS: 01392; 36415; 64445; 64447; 70450; 72125; 73590; 73610; 76000; 76942; 80053; 80306; 81003; 81015; 82077; 82140; 82803; 83605; 84484; 85025; 86140; 87040; 87086; 93005; 94761; 97161; 97530; 99284; 99285; 99291; G0378; A4580; A9270; C1713; G0390; J0690; J2250; J2405; J2704; J2795; J3010; J3490; J7120

== ENCOUNTER 2023-04-01 14:15 | Outpatient (RCR) | payer OTHER, SELFPAY | END 2023-05-29 13:33 | disposition home or self-care (01) | PROVIDERS: PCP Student in an Organized Health Care Education/Training Program; Visit Provider Physician Assistant | DX: S82.201A Unspecified fracture of shaft of right tibia, initial encounter for closed fracture (principal); M25.561 Pain in right knee; M25.562 Pain in left knee; R26.2 Difficulty in walking, not elsewhere classified; M62.81 Muscle weakness (generalized); Z51.89 Encounter for other specified aftercare | CPT/HCPCS: 97110; 97116; 97162 ==

== ENCOUNTER 2023-04-12 06:14 | Outpatient (CLI) | payer OTHER, SELFPAY | END 2023-04-12 06:15 | disposition home or self-care (01) | PROVIDERS: PCP Student in an Organized Health Care Education/Training Program; Visit Provider Family Medicine | DX: S09.90XA Unspecified injury of head, initial encounter (principal); R41.82 Altered mental status, unspecified; W19.XXXA Unspecified fall, initial encounter; Y92.008 Other place in unspecified non-institutional (private) residence as the place of occurrence of the external cause | CPT/HCPCS: A0425; A0429 ==

== ENCOUNTER 2023-04-12 06:47 | Observation (INO) | payer OTHER, SELFPAY ==
[2023-04-12] VITALS (24 sets, daily range): BP systolic 106–162; BP diastolic 60–117; PULSE 47–100; RESP 12–24; TEMP 36.2–36.6; O2SAT 86–100
--- NOTE | 2023-04-12 | CRLHL7_ITS ---
For Patients: As a result of the Cures Act, medical imaging exams and procedure reports are released immediately into your electronic medical record. You may view this report before your referring provider. If you have questions, please contact your health care provider. INDICATION: Trauma, fall. TECHNIQUE: CT cervical spine without contrast. COMPARISON: March 18, 2023. FINDINGS: Vertebrae: Alignment is normal. There are no fractures or suspicious bony lesions. Discs and facet joints: There are degenerative disc changes most severe at C5-6 and C6-7. There are multilevel degenerative changes in the facets. Extraspinal findings: Paraspinous soft tissues are unremarkable. IMPRESSION: 1. No sign of acute injury. 2. Multilevel degenerative spondylosis. Please note that all CT scans at this facility use dose modulation, iterative reconstruction, and/or weight-based dosing when appropriate to reduce radiation dose to as low as reasonably achievable. Dictated by Curtis Galeana MD @ 04/12/2023 7:42:42 AM (Electronically Signed)
--- NOTE | 2023-04-12 | CRLHL7_ITS ---
For Patients: As a result of the Century Cures Act, medical imaging exams and procedure reports are released immediately into your electronic medical record. You may view this report before your referring provider. If you have questions, please contact your health care provider. INDICATION: Trauma, fall. TECHNIQUE: Head CT without contrast. COMPARISON: March 18, 2023. FINDINGS: CSF spaces: Within normal limits for age. Brain parenchyma and extra-axial spaces: There are nonspecific low attenuation white matter changes consistent with chronic microvascular disease. No sign of mass, hemorrhage, or midline shift. Skull base and calvarium: The visualized paranasal sinuses and mastoid air cells demonstrate no acute or significant findings. The visualized orbits are grossly unremarkable. No skull fractures. A broad left convexity subgaleal hematoma present. IMPRESSION: Left convexity subgaleal hematoma without fracture or intracranial hemorrhage. Please note that all CT scans at this facility use dose modulation, iterative reconstruction, and/or weight-based dosing when appropriate to reduce radiation dose to as low as reasonably achievable. Dictated by Curtis Galeana MD @ 04/12/2023 7:33:17 AM (Electronically Signed)
--- NOTE | 2023-04-12 07:04 | CRLHL7_ITS ---
For Patients: As a result of the Cures Act, medical imaging exams and procedure reports are released immediately into your electronic medical record. You may view this report before your referring provider. If you have questions, please contact your health care provider. INDICATION: Altered mental status. Fall. TECHNIQUE: Chest 1 views. COMPARISON: April 23, 2020. FINDINGS: Cardiovasculature and mediastinum: Heart size and vasculature are normal in caliber and appearance. Lungs and pleural spaces: Lungs are clear. No sign of infiltrate or mass. No sign of pleural effusion. No pneumothorax. Bones and soft tissues: No significant findings. IMPRESSION: No acute findings and no significant changes from the prior exam. Dictated by Curtis Galeana MD @ 04/12/2023 8:20:35 AM (Electronically Signed)
--- NOTE | 2023-04-12 07:08 | CRLHL7_ITS ---
For Patients: As a result of the Cures Act, medical imaging exams and procedure reports are released immediately into your electronic medical record. You may view this report before your referring provider. If you have questions, please contact your health care provider. Indication: Pain and fracture. Technique: Right ankle 2 views. Comparison: March 18, 2023. Findings: Bones: There is hardware fixation of the nondisplaced distal tibia fracture. Nondisplaced fracture also again demonstrated in the distal fibula. No new osseous abnormality. No new findings to explain pain. Joint spaces: Unremarkable. Soft tissues: Unremarkable. Dictated by Curtis Galeana MD @ 04/12/2023 8:23:20 AM (Electronically Signed)
--- NOTE | 2023-04-12 07:14 | ED.NURSE ---
Pt arrived via [facility]. MD Angulo at bedside for EMS, no active bleeding observed, straight to CT for images.
--- NOTE | 2023-04-12 07:15 | ED.GENADULT ---
HPI - General Adult General Chief complaint: Altered Mental Status Stated complaint: fall, altered mental status Time Seen by Provider: 04/12/23 07:04 Source: patient and EMS Mode of arrival: EMS Limitations: altered mental status History of Present Illness HPI narrative: 62-year-old male with notable history of MS and prior similar visits for intoxication and altered mental status presents to the emergency department with altered mental status. Actually looks like he has a pretty similar history to tonight from a couple of weeks ago. Patient was found on the floor by his , naked this morning in the computer room. Apparently this is where he usually hangs out. She reports several falls over the last few days which is not terribly atypical for him with his history of MS. She reports that he is not acting like himself. She does not give any other specific feedback. This is an identical presentation to our last visit. It seems as though when she wakes up in the morning and finds him on the floor, she will call but is uncertain tonight of when he would have fallen. She does confess that she knew he fell the day before and also suffered an ankle fracture a few weeks ago, at the time that I evaluated him. For me today, he is only complaining of ankle pain, denies pain in other areas. He is not able to answer questions for me about last meal, what time he may have fallen, what he last remembers. He denies taking medications to me but pill bottles near him were reported by EMS. They report gabapentin, nifedipine, metoprolol and trazodone. I do not have record of any nifedipine and I did not hear them specifically mention his high dose anti spasmodic medication for his MS. He denies alcohol or illicit drug use last night. He continues to complain of right ankle pain, denies that he has taken any pain medication for this. I would not consider him a reliable historian. I attended at arrival of EMS and watch him be unloaded in the garage, perform a very quick assessment in the hallway and we elected to go directly to CT scan. Past medical history notable for MS, previous history and physical as well as discharge summary reviewed from a couple of weeks ago. He also has a history of hypertension and previous alcohol use. He is seen in the ED frequently for falls and underwent repair of a fracture of the right tibia and fibula from a couple of weeks ago. He does not arrive in a type of ankle brace or splint. None was seen near him per EMS. Medications noted, he is likely using these, even though he denies. He does deny allergies but we have benzocaine listed. Previously has confess to alcohol and marijuana use but denies tonight. ROS is notable only for the right ankle pain and altered mental status from EMS and family. We also note multiple abrasions in various stages of healing. EMS otherwise denies times 12 systems, patient denies everything but the ankle pain. Related Data Home Medications Medication Instructions Recorded Confirmed baclofen 20 mg tablet 40 mg PO TID 03/18/23 03/25/23 gabapentin 400 mg capsule 1,200 mg PO TID 03/18/23 03/25/23 ibuprofen 800 mg tablet 800 mg PO TID 03/18/23 03/25/23 metoprolol tartrate 50 mg tablet 50 mg PO BID 03/18/23 03/25/23 trazodone 100 mg tablet 100 mg PO QPM 03/18/23 03/25/23 Previous Rx's Medication Instructions Recorded acetaminophen 500 mg capsule 500 - 1,000 mg (1 - 2 x 500 mg) PO 03/19/23 Q6H PRN pain #100 caps oxycodone 5 mg tablet 2.5 mg (1/2 x 5 mg) PO Q4-6H PRN 03/19/23 Pain #15 tabs sennosides 8.6 mg tablet (Senna 17.2 mg (2 x 8.6 mg) PO BID PRN 03/19/23 Lax) constipation #100 tabs aspirin 81 mg chewable tablet 81 mg PO BID #60 tabs 03/25/23 Allergies Allergy/AdvReac Type Severity Reaction Status Date / Time benzocaine Allergy Verified 03/25/23 11:00 [facility] Medical History 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 (ICD-10) Lumbar spondylosis ?M47.816 - Spondylosis without myelopathy or radiculopathy, lumbar region (ICD-10) Abscess of right thigh ?L02.415 - Cutaneous abscess of right lower limb (ICD-10) Amputation of right great toe ?S98.111A - Complete traumatic amputation of right great toe, initial encounter (ICD-10) Chronic pain of right ankle ?M25.571 - Pain in right ankle and joints of right foot (ICD-10) ?G89.29 - Other chronic pain (ICD-10) Generalized hyperhidrosis ?R61 - Generalized hyperhidrosis (ICD-10) Seasonal allergies ?J30.2 - Other seasonal allergic rhinitis (ICD-10) Bilateral shoulder pain ?M25.511 - Pain in right shoulder (ICD-10) ?M25.512 - Pain in left shoulder (ICD-10) Optic atrophy ?H47.20 - Unspecified optic atrophy (ICD-10) Multiple pulmonary nodules ?R91.8 - Other nonspecific abnormal finding of lung field (ICD-10) Insomnia ?G47.00 - Insomnia, unspecified (ICD-10) History of falling ?Z91.81 - History of falling (ICD-10) Unstable gait ?R26.81 - Unsteadiness on feet (ICD-10) Ataxia ?R27.0 - Ataxia, unspecified (ICD-10) Anemia ?D64.9 - Anemia, unspecified (ICD-10) Sleep pattern disturbance ?G47.20 - Circadian rhythm sleep disorder, unspecified type (ICD-10) Obstructive sleep apnea ?G47.33 - Obstructive sleep apnea (adult) (pediatric) (ICD-10) Chronic headaches ?R51.9 - Headache, unspecified (ICD-10) ?G89.29 - Other chronic pain (ICD-10) Raynaud's syndrome ?I73.00 - Raynaud's syndrome without gangrene (ICD-10) Habitual alcohol use ?F10.90 - Alcohol use, unspecified, uncomplicated (ICD-10) Vapes nicotine containing substance ?Z72.0 - Tobacco use (ICD-10) Former smoker ?Z87.891 - Personal history of nicotine dependence (ICD-10) Essential hypertension ?I10 - Essential (primary) hypertension (ICD-10) Displacement of lumbar intervertebral disc without myelopathy ?M51.26 - Other intervertebral disc displacement, lumbar region (ICD-10) Lumbar disc herniation with radiculopathy ?M51.16 - Intervertebral disc disorders with radiculopathy, lumbar region (ICD-10) Multiple sclerosis ?G35 - Multiple sclerosis (ICD-10) Bilateral inguinal hernia ?K40.20 - Bilateral inguinal hernia, without obstruction or gangrene, not specified as recurrent (ICD-10) Surgical History Status post vasectomy ?Z98.52 - Vasectomy status (ICD-10) Status post amputation of right great toe ?Z89.411 - Acquired absence of right great toe (ICD-10) Hx of bursectomy ?Z98.890 - Other specified postprocedural states (ICD-10) S/P bilateral inguinal herniorrhaphy ?Z98.890 - Other specified postprocedural states (ICD-10) ?Z87.19 - Personal history of other diseases of the digestive system (ICD-10) S/p bilateral carpal tunnel release ?Z98.890 - Other specified postprocedural states (ICD-10) Status post left hip replacement ?Z96.642 - Presence of left artificial hip joint (ICD-10) Family History Father Diabetes Social History What is your current living situation?: I presently have a place to live Problems where you live: unable to answer In the past 12 months, utilities in danger of being shut off: unable to answer In the past 12 mos, have been you worried that your food would run out before you had money to buy more?: unable to answer In the past 12 mos, the food you bought just didn't last and you didn't have money to buy more?: unable to answer Highest level of school completed/degree received: decline to answer Smoking Status: Former smoker Do you use any of these nicotine containing products: Vaping Products Smokeless tobacco user: other Smokeless tobacco user details: marijuana Second hand tobacco smoke exposure: No How often do you have a drink containing alcohol: 2-4 times a month Alcohol type details: unable to answer How many standard drinks containing alcohol do you have on a typical day: 5 or 6 How often do you have six or more drinks on one occasion: Daily or almost daily AUDIT-C Alcohol total score: 8 Non-prescribed substance use: marijuana (any form) Non-prescribed substance use details: from medical hx How often does anyone, including family, friends and others, physically hurt you: unable to answer How often does anyone, including family, friends and others, insult or talk down to you: unable to answer How often does anyone, including family, friends and others, threaten you with harm: unable to answer How often does anyone, including family, friends and others, scream or curse at you: unable to answer service: No Exam Const: Vital Signs, click to edit/add: Vital Signs - 24 hr 04/12/23 07:00 04/12/23 07:03 04/12/23 07:04 Temperature 97.4 F L Pulse Rate 52 L 50 L Pulse Rate [Pulse Oximeter] 48 L Respiratory Rate 16 Blood Pressure 142/91 H Blood Pressure [Le ft Upper Arm] 142/91 H Pulse Oximetry 95 100 90 Oxygen Delivery Me thod Room Air Oxygen Flow Rate 04/12/23 07:06 04/12/23 07:11 04/12/23 07:17 Temperature Pulse Rate 49 L 55 L Pulse Rate [Pulse Oximeter] Respiratory Rate Blood Pressure 124/81 139/83 137/82 Blood Pressure [Le ft Upper Arm] Pulse Oximetry 96 98 Oxygen Delivery Me thod Oxygen Flow Rate 04/12/23 07:20 04/12/23 07:22 04/12/23 07:26 Temperature Pulse Rate 49 L 47 L Pulse Rate [Pulse Oximeter] Respiratory Rate Blood Pressure 132/75 139/69 Blood Pressure [Le ft Upper Arm] Pulse Oximetry 86 L 96 100 Oxygen Delivery Me thod Nasal Cannula Oxygen Flow Rate 2 04/12/23 07:30 04/12/23 07:32 04/12/23 07:36 Temperature Pulse Rate 54 L 85 Pulse Rate [Pulse Oximeter] Respiratory Rate Blood Pressure 128/91 H 131/70 Blood Pressure [Le ft Upper Arm] Pulse Oximetry 89 99 Oxygen Delivery Me thod Oxygen Flow Rate 04/12/23 07:44 04/12/23 07:46 04/12/23 08:01 Temperature Pulse Rate Pulse Rate [Pulse Oximeter] Respiratory Rate Blood Pressure 141/75 H 133/78 106/72 Blood Pressure [Le ft Upper Arm] Pulse Oximetry Oxygen Delivery Me thod Oxygen Flow Rate Documenting provider has reviewed patient's vital signs: yes Orientation/consciousness: Yes awake Other: He will answer questions directly, moving around frequently complaining of right ankle pain. Does not engage in conversation unless asked. Alert but with eyes closed and drowsy. Oriented to person and place. HENMT: Common normals: external nose normal Face and sinus: normal facial exam Nose: external nose normal Mouth: oral and palatal mucosa normal Throat: posterior oropharynx normal Other: No obvious skull deformity but subcutaneous swelling near left occiput and multiple small abrasions, some less than 24 hours old, some more consistent with a couple of days old. No obvious new dental injury but does have some teeth in need of repair. Eye: Common normals: PERRL, EOMs intact bilaterally, conjunctivae normal and no scleral icterus General eye: normal appearance of both eyes Conjunctiva: conjunctiva(e) normal Pupil: PERRL Neck & C-Spine: Common normals: full ROM and no lymphadenopathy Cervical spine: cervical ROM normal and collar present (Collar placed in CT scan.); no cervical spine tenderness Chest: Common normals: inspection of chest normal and palpation of chest normal Resp: Common normals: normal respiratory effort, no use of accessory muscles and clear to auscultation bilaterally Auscultation: clear to auscultation bilaterally Cardio: Common normals: regular rate, regular rhythm, S1 normal heart sound, S2 normal heart sound and no murmurs Rate: regular rate Rhythm: regular rhythm Heart sounds: S1 normal and S2 normal GI: Common normals: Normal to inspection, nondistended, normoactive bowel sounds present, soft to palpation and non-tender Palpation: soft Other: Liver diffusely enlarged but nontender, no other masses. : Other: Grossly normal external genitalia, no obvious blood at urethral meatus. Back & Pelvis: Common normals: thoracic and lumbar spine normal to inspection and no thoracic nor lumbar tenderness Other: A few abrasions on back, no other signs of injury or deformity. Extremity: Other: Mild swelling and tenderness to right upper ankle, no obvious deformity. There was no brace or splint in place. Good pulses, no signs of skin breakdown. Missing several toes, not new. Neuro: Antonio Coma Scale: document GCS findings [place] coma scale eye opening: To sound (3) [place] coma scale verbal response: Confused (4) [place] coma scale motor response: Obey commands (6) [place] coma scale total score: 13 Sensorium/orientation: awake Other: Moves extremities on command, no obvious focal deficit. Withdraws from pain, will answer questions. Oval weakness, appears to have some chronic muscle wasting. Psych: Other: Mood is mildly irritable but will answer questions. Does seem to be mildly intoxicated or altered in some way. Judgment seems impaired, insight poor. Skin: Narrative: Multiple superficial abrasions and bruises in various stages of healing. No large hematomas, areas of deformity or large bruises. Course Course Hospital Course: Differential diagnosis including concussion, brain hemorrhage, ischemic stroke, intoxication, metabolic etiology such as sepsis, acute delirium, among others. Polypharmacy from trazodone, gabapentin, baclofen combined with substance use an overall medical deterioration is suspected most likely. Likely subcutaneous small hemorrhage to the left side of the head, uncertain of clinical significance. Presentation is nearly identical to a couple of weeks ago. Will obtain head CT, C-spine CT, ankle x-ray, chest x-ray, basic labs to look for metabolic or medical etiology. Will give 5 mg of oral oxycodone for pain. Begin a L of normal saline and await findings. At this time, I do not think he will be safe to return home. He is likely going to need further titration and direction of his medications prior to discharge. I was able to speak with him a little more once we got him settled in the IV placed. I ask about ankle brace, he informs me that he has a cam walker boot by his description I assume. He is not wearing it he makes quite clear. He is also not using crutches, walker or cane as directed. He certainly could have displaced this fracture again. Awaiting x-ray. Reevaluation(s) Time of Reevaluation #1: 08:18 Reevaluation #1: Discussed patient with Dr. Solano after reviewing CT. He is requiring oxygen which is similar to previous presentation. I think that he needs admission for further workup of the delirium, evaluation of his polypharmacy. He needs an evaluation from physical therapy to determine his needs for home to allow for proper healing of this fracture. We have replaced his cam walker boot. I go back in to discuss this with head and he is arousable but appears much more comfortable, I think the oxycodone must be helping. Dr. Solano was agreeable to admission and further workup. Vital Signs Vital signs: Initial Vital Signs Temperature 97.4 F L 04/12/23 07:00 Temperature Source Temporal Artery Scan 04/12/23 07:00 Pulse Rate 48 L 04/12/23 07:00 Respiratory Rate 16 04/12/23 07:00 Blood Pressure 142/91 H 04/12/23 07:00 Blood Pressure Mean 108 H 04/12/23 07:00 Blood Pressure Position Supine 04/12/23 07:00 Pulse Oximetry 95 04/12/23 07:00 Oxygen Delivery Method Room Air 04/12/23 07:00 Vital Signs Temperature 97.4 F L 04/12/23 07:00 Pulse Rate 48 L 04/12/23 07:00 Respiratory Rate 16 04/12/23 07:00 Blood Pressure 142/91 H 04/12/23 07:00 Pulse Oximetry 95 04/12/23 07:00 Oxygen Delivery Method Room Air 04/12/23 07:00 Temperature 97.4 F L 04/12/23 07:00 Pulse Rate 85 04/12/23 07:32 Respiratory Rate 16 04/12/23 07:00 Blood Pressure 106/72 04/12/23 08:01 Pulse Oximetry 99 04/12/23 07:32 Oxygen Delivery Method Nasal Cannula 04/12/23 07:20 Oxygen Flow Rate 2 04/12/23 07:20 Medical Decision Making Medical Records Medical records reviewed: Yes I reviewed the patient's medical records Medical records narrative: Previous admission reviewed. Lab Data Lab results reviewed: Yes I reviewed the patient's lab results Lab results narrative: Initial findings reassuring, awaiting chemistries Labs: Lab Results 04/12/23 04/12/23 Range/Units 07:15 07:24 WBC 13.57 H (4.50-11.00) K/uL RBC 4.35 (4.30-5.90) m/uL Hgb 11.3 L (13.5-17.5) gm/dL Hct 36.5 L (37.0-53.0) % MCV 84 (80-100) fL MCH 26 (26-34) pg MCHC 31 L (32-36) gm/dL RDW Coeff of Na 14.7 (11.5-15.5) % Plt Count 354 (140-440) K/uL Neut % (Auto) 83.5 H (42.0-72.0) % Lymph % (Auto) 6.6 L (20-44) % [place] % (Auto) 8.8 (0.0-11.0) % Eos % (Auto) 0.5 (0.0-7.0) % Baso % (Auto) 0.3 (0.0-3.0) % Neut # (Auto) 11.30 H (1.7-7.0) K/uL Lymph # (Auto) 0.90 (0.90-2.90) K/uL [place] # (Auto) 1.20 H (0.00-0.90) K/UL Eos # (Auto) 0.10 (0.00-0.50) K/uL Baso # (Auto) 0.00 (0.00-0.30) K/uL INR 1.00 (0.91-1.10) Sodium 138 (135-149) mmol/L Potassium 4.8 (3.6-5.1) mmol/L Chloride 106 (96-114) mmol/L Carbon Dioxide 22 (20-32) mmol/L BUN 17 (7-30) mg/dL Creatinine 1.1 (0.5-1.5) mg/dL Estimated GFR 77 ml/min Glucose 103 (60-115) mg/dL Lactate 2.5 H (0.5-1.9) mmol/L Calcium 9.4 (8.4-10.6) mg/dL Total Bilirubin 0.9 (0.1-1.5) mg/dL AST 50 H (12-35) U/L ALT 16 (4-50) U/L Alkaline Phosphatase 136 (40-150) U/L Total Protein 6.8 (6.0-8.3) g/dL Albumin 2.3 L (3.3-5.0) g/dL Ethyl Alcohol < 0.01 L (0.01-0.03) % POC Troponin I 0.00 L (0.01-0.04) ng/ml Imaging Data CT scan - head: Attestation: I have reviewed the pertinent imaging results. My impression: Subcutaneous hematoma of scalp, no obvious hemorrhage. Degenerative brain changes more advanced than would be expected for age. Radiologist's impression: IMPRESSION: Left convexity subgaleal hematoma without fracture or intracranial hemorrhage. CT cervical spine: Attestation: I have reviewed the pertinent imaging results. My impression: No obvious fracture, some degenerative changes noted. Not ideal quality due to movement. Radiologist's impression: IMPRESSION: 1. No sign of acute injury. 2. Multilevel degenerative spondylosis. Chest x-ray: Attestation: I have reviewed the pertinent imaging results. My impression: Normal Radiologist's impression: IMPRESSION: No acute findings and no significant changes from the prior exam. X-ray ankle right: Attestation: I have reviewed the pertinent imaging results. My impression: There is a little bit of widening compared to the intraoperative films at the medial edge of the fracture of the tibia, but hardware appears in place. Radiologist's impression: Findings: Bones: There is hardware fixation of the nondisplaced distal tibia fracture. Nondisplaced fracture also again demonstrated in the distal fibula. No new osseous abnormality. No new findings to explain pain. Joint spaces: Unremarkable. Soft tissues: Unremarkable. ECG Data Interpretation: Sinus bradycardia, no obvious signs of ischemic change. Normal axis. No significant ST or T-wave abnormalities. No changes from 2 weeks ago. Critical Care Time Critical Care Time Total Critical Care Time in Minutes: 35 (More critical care time than expected, patient was restless and required significant assistance from the whole team to move him to and from CT and get him settled into the room. I was unable to attend to other patients during this process.) Discharge Plan Discharge Clinical Impression: Acute delirium Patient Disposition: Admitted As Inpatient
[2023-04-12] MEDS: OXYCODONE 5 MG TABLET PO (07:19)
[2023-04-12] MEDS: 0.9 % SODIUM CHLORIDE 1000 ml 1,000 ML IV (07:29)
[2023-04-12 07:35] LABS: Lactate* 2.5 mmol/L (0.5-1.9)
[2023-04-12 07:40] LABS: Basophils Percent Auto 0.3 % (0.0-3.0); Eosinophils Percent Auto 0.5 % (0.0-7.0); Hematocrit 36.5 % (37.0-53.0); Hemoglobin* 11.3 gm/dL (13.5-17.5); Immature Granulocytes Pct Auto 0.3 %; Lymphocytes Percent Auto 6.6 % (20-44); Mean Corpuscular HGB Conc 31 gm/dL (32-36); Mean Corpuscular Hemoglobin 26 pg (26-34); Mean Corpuscular Volume 84 fL (80-100); Monocytes Percent Auto 8.8 % (0.0-11.0); Neutrophils Percent Auto 83.5 % (42.0-72.0); Platelet Count* 354 K/uL (140-440); RDW Coefficient of Variation % 14.7 % (11.5-15.5); Red Blood Count 4.35 m/uL (4.30-5.90); White Blood Count* 13.57 K/uL (4.50-11.00)
[2023-04-12 07:48] LABS: Slide Review Reflex No
--- NOTE | 2023-04-12 07:51 | ED.NURSE ---
R cam walker placed. pt yelling out in pain, unable to hold still. c/o R ankle pain.
[2023-04-12 07:59] LABS: Prothrombin Time 13.8 Seconds
--- NOTE | 2023-04-12 08:09 | ED.NURSE ---
pt placed on 2l o2 for sats decreasing into 80's while sleeping
[2023-04-12 08:10] LABS: Albumin* 2.3 g/dL (3.3-5.0); Chloride* 106 mmol/L (96-114); Sodium* 138 mmol/L (135-149)
[2023-04-12 08:11] LABS: Potassium* 4.8 mmol/L (3.6-5.1)
[2023-04-12 08:13] LABS: Alanine Aminotransferase* 16 U/L (4-50); Alkaline Phosphatase* 136 U/L (40-150); Aspartate Amino Transferase* 50 U/L (12-35); Bilirubin Total* 0.9 mg/dL (0.1-1.5); Blood Urea Nitrogen* 17 mg/dL (7-30); Carbon Dioxide* 22 mmol/L (20-32); Creatinine* 1.1 mg/dL (0.5-1.5); Estimated Glomerular Filt Rate 77 ml/min; Glucose* 103 mg/dL (60-115); Total Protein* 6.8 g/dL (6.0-8.3)
[2023-04-12 08:14] LABS: Calcium* 9.4 mg/dL (8.4-10.6)
[2023-04-12 08:17] LABS: Ethanol* < 0.01 % (0.01-0.03)
[2023-04-12 08:25] LABS: Troponin I* 0.03 ng/mL (0.01-0.04)
--- NOTE | 2023-04-12 08:38 | ED.NURSE ---
report given to vida, pt will transfer to room 276 via cart with belongings.
[2023-04-12 09:00] LABS: Ammonia* < 9.0 umol/L (13.1-30.0)
--- NOTE | 2023-04-12 09:30 | CRLHL7_ITS ---
For Patients: As a result of the Century Cures Act, medical imaging exams and procedure reports are released immediately into your electronic medical record. You may view this report before your referring provider. If you have questions, please contact your health care provider. Indication: PAIN, INJURY, RECENT ORIF Technique: Two views right tibia and fibula Comparison: 03/18/2023 Findings: Diffuse soft tissue calcifications again noted. Status post open reduction internal fixation of distal tibial fracture with intact hardware. Fracture of the distal fibula again noted. Additional fracture of the proximal fibula is present. Dense vascular calcifications are present. Impression: Status post ORIF of distal tibial diaphyseal fracture with near anatomic alignment and intact hardware. Mildly displaced fractures of the distal fibula and proximal fibula again noted. Dictated by Mil Dupree MD @ 04/12/2023 11:55:29 AM (Electronically Signed)
[2023-04-12] MEDS: MORPHINE 4 MG/ML INJ IVP (09:42)
[2023-04-12] MEDS: MORPHINE 2 MG/ML inj IVP (10:31)
[2023-04-12] MEDS: LACTATED RINGERS 500 ML 500 ML IV (10:35)
[2023-04-12 11:19] LABS: Lactate* 1.5 mmol/L (0.5-1.9)
[2023-04-12] MEDS: LACTATED RINGERS 1000 ML 1,000 ML 125 ML IV (11:33)
[2023-04-12 12:23] LABS: Amphetamine Screen Urine Negative (Negative); Barbiturate Screen Urine Negative (Negative); Benzodiazepines Screen Urine Negative (Negative); Cocaine Screen Urine Negative (Negative); Methadone Screen Urine Negative (Negative); Methamphetamines Screen Urine Negative (Negative); Oxycodone Screen Urine Negative (Negative); Phencyclidine Screen Urine Negative (Negative); Tricyclic Antidepressant Urine Negative (Negative)
[2023-04-12 12:24] LABS: Appearance Urine Clear (Clear); Bilirubin Urine Negative (Negative); Blood Urine 1+ (Negative); Color Urine Yellow (Yellow); Glucose Urine Negative (Negative); Ketones Urine Negative (Negative); Leukocyte Esterase Urine Trace (Negative); Nitrite Urine Negative (Negative); Protein Urine Negative (Negative); Urobilinogen Urine 0.2 (0.2-1.0); pH Urine 5.5 (5.0-8.5)
[2023-04-12 12:31] LABS: Cannabinoid Screen Urine POSITIVE (Negative); Opiate Screen Urine POSITIVE (Negative)
[2023-04-12 12:37] LABS: Amorphous Sediment Urine Few; Squamous Epithelial Cell Urine Moderate (None-Few)
[2023-04-12 12:59] LABS: Creatine Kinase* 446 U/L (54-186)
--- NOTE | 2023-04-12 13:21 | REH.PT ---
PT/OT Eval &Treat orders received. Chart reviewed. Pt unable to follow directions and not appropriate for therapies at this time. Plan to reassess tomorrow.
[2023-04-12] MEDS: IBUPROFEN 400 MG TABLET 800 MG PO ×2 (13:39)
[2023-04-12] MEDS: OXYCODONE 5 MG TABLET 2.5 MG PO ×3 (13:40→21:42)
[2023-04-12] MEDS: BACLOFEN 10 MG TABLET 40 MG PO ×2 (13:40→20:58)
[2023-04-12] MEDS: GABAPENTIN 300 MG CAPSULE 600 MG PO ×2 (13:40→20:57)
--- NOTE | 2023-04-12 13:54 | PM.ORCN ---
History of Present Illness HPI Date Seen: 04/12/23 Consult date: 04/12/23 Requesting physician: Will Solano Consult reason: fracture Chief complaint: fall, altered mental status Narrative: Known patient to our clinic. Our orthopedic team was asked to consult on 62-year-old male who recently underwent right tib-fib IM nail (03/19/2023, Dr. Cabrera). Due to this fracture, he was instructed to be nonweightbearing right lower extremity. Recently saw for postop visit on 03/25/2023 with no grave concerns. He was found this morning (04/12/23) by his on the floor, minimally responsive. He was wearing nothing, which included no Cam boot. EMS was summoned, brought into the hospital with concern for altered mental status. Patient has a history of MS, and excessive alcohol consumption. In the ED, he was complaining of right ankle pain. X-rays acquired, without any noted significant change to the fractures. He was admitted to Med/surg for further care largely regarding his altered mental status. Per chart review, he has had numerous falls over the past few days, history obtained from his . Upon my attempted visit with the patient, he is asleep, and refuses to wake up - thus he provides no history. Per hospital staff, patient's mood and alert status has been fluctuant. At times he is yelling, arguing with his , crying, staring out in the distance and not responsive, or sleeping and refusing to wake up. 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 (ICD-10) Lumbar spondylosis ?M47.816 - Spondylosis without myelopathy or radiculopathy, lumbar region (ICD-10) Abscess of right thigh ?L02.415 - Cutaneous abscess of right lower limb (ICD-10) Amputation of right great toe ?S98.111A - Complete traumatic amputation of right great toe, initial encounter (ICD-10) Chronic pain of right ankle ?M25.571 - Pain in right ankle and joints of right foot (ICD-10) ?G89.29 - Other chronic pain (ICD-10) Generalized hyperhidrosis ?R61 - Generalized hyperhidrosis (ICD-10) Seasonal allergies ?J30.2 - Other seasonal allergic rhinitis (ICD-10) Bilateral shoulder pain ?M25.511 - Pain in right shoulder (ICD-10) ?M25.512 - Pain in left shoulder (ICD-10) Optic atrophy ?H47.20 - Unspecified optic atrophy (ICD-10) Multiple pulmonary nodules ?R91.8 - Other nonspecific abnormal finding of lung field (ICD-10) Insomnia ?G47.00 - Insomnia, unspecified (ICD-10) History of falling ?Z91.81 - History of falling (ICD-10) Unstable gait ?R26.81 - Unsteadiness on feet (ICD-10) Ataxia ?R27.0 - Ataxia, unspecified (ICD-10) Anemia ?D64.9 - Anemia, unspecified (ICD-10) Sleep pattern disturbance ?G47.20 - Circadian rhythm sleep disorder, unspecified type (ICD-10) Obstructive sleep apnea ?G47.33 - Obstructive sleep apnea (adult) (pediatric) (ICD-10) Chronic headaches ?R51.9 - Headache, unspecified (ICD-10) ?G89.29 - Other chronic pain (ICD-10) Raynaud's syndrome ?I73.00 - Raynaud's syndrome without gangrene (ICD-10) Habitual alcohol use ?F10.90 - Alcohol use, unspecified, uncomplicated (ICD-10) Vapes nicotine containing substance ?Z72.0 - Tobacco use (ICD-10) Former smoker ?Z87.891 - Personal history of nicotine dependence (ICD-10) Essential hypertension ?I10 - Essential (primary) hypertension (ICD-10) Displacement of lumbar intervertebral disc without myelopathy ?M51.26 - Other intervertebral disc displacement, lumbar region (ICD-10) Lumbar disc herniation with radiculopathy ?M51.16 - Intervertebral disc disorders with radiculopathy, lumbar region (ICD-10) Multiple sclerosis ?G35 - Multiple sclerosis (ICD-10) Bilateral inguinal hernia ?K40.20 - Bilateral inguinal hernia, without obstruction or gangrene, not specified as recurrent (ICD-10) Surgical History Status post vasectomy ?Z98.52 - Vasectomy status (ICD-10) Status post amputation of right great toe ?Z89.411 - Acquired absence of right great toe (ICD-10) Hx of bursectomy ?Z98.890 - Other specified postprocedural states (ICD-10) S/P bilateral inguinal herniorrhaphy ?Z98.890 - Other specified postprocedural states (ICD-10) ?Z87.19 - Personal history of other diseases of the digestive system (ICD-10) S/p bilateral carpal tunnel release ?Z98.890 - Other specified postprocedural states (ICD-10) Status post left hip replacement ?Z96.642 - Presence of left artificial hip joint (ICD-10) Family History Father Diabetes Social History Narrative: He lives with his . In the past he has had abuse of alcohol and cannabis but currently denies any. He gets medical care through the [facility]. His does not think he has been to the neurologist for his MS in quite some time. What is your current living situation?: I presently have a place to live Problems where you live: no known problems Problems where you live details: none In the past 12 months, utilities in danger of being shut off: no In the past 12 mos, have been you worried that your food would run out before you had money to buy more?: never true In the past 12 mos, the food you bought just didn't last and you didn't have money to buy more?: never true Highest level of school completed/degree received: decline to answer Smoking Status: Former smoker Do you use any of these nicotine containing products: Vaping Products Smokeless tobacco user: other Smokeless tobacco user details: marijuana Second hand tobacco smoke exposure: No How often do you have a drink containing alcohol: 2-4 times a month Alcohol type details: Yes drinks How many standard drinks containing alcohol do you have on a typical day: 5 or 6 How often do you have six or more drinks on one occasion: Daily or almost daily AUDIT-C Alcohol total score: 8 Non-prescribed substance use: marijuana (any form) Non-prescribed substance use details: from medical hx Caffeine: Yes How often does anyone, including family, friends and others, physically hurt you: never How often does anyone, including family, friends and others, insult or talk down to you: rarely How often does anyone, including family, friends and others, threaten you with harm: never How often does anyone, including family, friends and others, scream or curse at you: rarely service: Yes Meds Home Medications and Allergies Home Medications Medication Instructions Recorded Confirmed Type baclofen 20 mg tablet 40 mg PO TID 03/18/23 04/12/23 History gabapentin 400 mg capsule 1,200 mg PO TID 03/18/23 04/12/23 History ibuprofen 800 mg tablet 800 mg PO TID 03/18/23 04/12/23 History metoprolol tartrate 50 mg tablet 50 mg PO BID 03/18/23 04/12/23 History trazodone 100 mg tablet 100 mg PO QPM 03/18/23 04/12/23 History Allergies Allergy/AdvReac Type Severity Reaction Status Date / Time benzocaine Allergy Verified 03/25/23 11:00 Ortho Exam Narrative Exam Narrative: General: Well-developed, well-nourished, sleeping, not able to awaken Pulmonary: Breathing pattern regular, even, without apparent distress or audible wheeze present. He is snoring Right lower extremity: Limited right lower extremity exam due to patient sleeping, and not willing to wake up. Lying on his right side, Cam boot on the right lower extremity tucked underneath him Again, as I am unable to waking the patient, I am not able to fully assess the right lower extremity. Did not want to attempt this with his fluctuant moods. Const Vital Signs, click to edit/add: Vital Signs - 24 hr 04/12/23 07:00 04/12/23 07:03 04/12/23 07:04 Temperature 97.4 F L Pulse Rate 52 L 50 L Pulse Rate [Pulse Oximeter] 48 L Respiratory Rate 16 Blood Pressure 142/91 H Blood Pressure [Left Arm] Blood Pressure [Left Upper Arm] 142/91 H Pulse Oximetry 95 100 90 Oxygen Delivery Method Room Air Oxygen Flow Rate 04/12/23 07:06 04/12/23 07:11 04/12/23 07:17 Temperature Pulse Rate 49 L 55 L Pulse Rate [Pulse Oximeter] Respiratory Rate Blood Pressure 124/81 139/83 137/82 Blood Pressure [Left Arm] Blood Pressure [Left Upper Arm] Pulse Oximetry 96 98 Oxygen Delivery Method Oxygen Flow Rate 04/12/23 07:20 04/12/23 07:22 04/12/23 07:26 Temperature Pulse Rate 49 L 47 L Pulse Rate [Pulse Oximeter] Respiratory Rate Blood Pressure 132/75 139/69 Blood Pressure [Left Arm] Blood Pressure [Left Upper Arm] Pulse Oximetry 86 L 96 100 Oxygen Delivery Method Nasal Cannula Oxygen Flow Rate 2 04/12/23 07:30 04/12/23 07:32 04/12/23 07:36 Temperature Pulse Rate 54 L 85 Pulse Rate [Pulse Oximeter] Respiratory Rate Blood Pressure 128/91 H 131/70 Blood Pressure [Left Arm] Blood Pressure [Left Upper Arm] Pulse Oximetry 89 99 Oxygen Delivery Method Oxygen Flow Rate 04/12/23 07:44 04/12/23 07:46 04/12/23 08:01 Temperature Pulse Rate Pulse Rate [Pulse Oximeter] Respiratory Rate Blood Pressure 141/75 H 133/78 106/72 Blood Pressure [Left Arm] Blood Pressure [Left Upper Arm] Pulse Oximetry Oxygen Delivery Method Oxygen Flow Rate 04/12/23 08:31 04/12/23 09:15 04/12/23 09:15 Temperature 97.7 F Pulse Rate Pulse Rate [Pulse Oximeter] 74 Respiratory Rate 12 Blood Pressure 119/81 Blood Pressure [Left Arm] 148/117 H Blood Pressure [Left Upper Arm] Pulse Oximetry 99 99 Oxygen Delivery Method Room Air Room Air Oxygen Flow Rate 04/12/23 11:37 Temperature 97.1 F L Pulse Rate Pulse Rate [Pulse Oximeter] 50 L Respiratory Rate 12 Blood Pressure Blood Pressure [Left Arm] 107/66 Blood Pressure [Left Upper Arm] Pulse Oximetry 94 Oxygen Delivery Method Room Air Oxygen Flow Rate Results Labs Labs: Laboratory Results - last 48 hr 04/12/23 04/12/23 04/12/23 07:15 07:24 11:05 WBC 13.57 H RBC 4.35 Hgb 11.3 L Hct 36.5 L MCV 84 MCH 26 MCHC 31 L RDW Coeff of Na 14.7 Plt Count 354 Neut % (Auto) 83.5 H Lymph % (Auto) 6.6 L Whitley % (Auto) 8.8 Eos % (Auto) 0.5 Baso % (Auto) 0.3 Neut # (Auto) 11.30 H Lymph # (Auto) 0.90 Whitley # (Auto) 1.20 H Eos # (Auto) 0.10 Baso # (Auto) 0.00 INR 1.00 Sodium 138 Potassium 4.8 Chloride 106 Carbon Dioxide 22 BUN 17 Creatinine 1.1 Estimated GFR 77 Glucose 103 Lactate 2.5 H 1.5 Calcium 9.4 Total Bilirubin 0.9 AST 50 H ALT 16 Alkaline Phosphatase 136 Ammonia < 9.0 L Total Creatine Kinase 446 H Troponin I 0.03 Total Protein 6.8 Albumin 2.3 L Urine Color Urine Appearance Urine pH Ur Specific [place] Urine Protein Urine Glucose (UA) Urine Ketones Urine Blood Urine Nitrite Urine Bilirubin Urine Urobilinogen Ur Leukocyte Esterase Urine RBC Urine WBC Ur Squamous Epith Cells Amorphous Sediment Urine Bacteria Urine Opiates Screen Ur Oxycodone Screen Urine Methadone Screen Ur Propoxyphene Screen Ur Barbiturates Screen U Tricyclic Antidepress Ur Phencyclidine Scrn Ur Amphetamines Screen U Methamphetamines Scrn U Benzodiazepines Scrn Urine Cocaine Screen U Marijuana (THC) Screen Ur Drug Screen Comment Ethyl Alcohol < 0.01 L Lab Acknowledgement POC Troponin I 0.00 L 04/12/23 04/12/23 04/12/23 11:49 11:55 12:38 WBC RBC Hgb Hct MCV MCH MCHC RDW Coeff of Na Plt Count Neut % (Auto) Lymph % (Auto) Whitley % (Auto) Eos % (Auto) Baso % (Auto) Neut # (Auto) Lymph # (Auto) Whitley # (Auto) Eos # (Auto) Baso # (Auto) INR Sodium Potassium Chloride Carbon Dioxide BUN Creatinine Estimated GFR Glucose Lactate Calcium Total Bilirubin AST ALT Alkaline Phosphatase Ammonia Total Creatine Kinase Troponin I Total Protein Albumin Urine Color Yellow Urine Appearance Clear Urine pH 5.5 Ur Specific [place] 1.020 Urine Protein Negative Urine Glucose (UA) Negative Urine Ketones Negative Urine Blood 1+ A Urine Nitrite Negative Urine Bilirubin Negative Urine Urobilinogen 0.2 Ur Leukocyte Esterase Trace A Urine RBC 10-25 A Urine WBC 5-10 A Ur Squamous Epith Cells Moderate A Amorphous Sediment Few A Urine Bacteria None Urine Opiates Screen POSITIVE A* Ur Oxycodone Screen Negative Urine Methadone Screen Negative Ur Propoxyphene Screen Negative Ur Barbiturates Screen Negative U Tricyclic Antidepress Negative Ur Phencyclidine Scrn Negative Ur Amphetamines Screen Negative U Methamphetamines Scrn Negative U Benzodiazepines Scrn Negative Urine Cocaine Screen Negative U Marijuana (THC) Screen POSITIVE A* Ur Drug Screen Comment See Note Ethyl Alcohol Lab Acknowledgement Test Added POC Troponin I Diagnostic results Ankle/Foot x-ray: report reviewed, image reviewed and other (right tib/fib) Additional Comments: AP, lateral views of the right ankle ordered by different provider, [facility] dated 04/12/2023. These images were reviewed and corroborated with the radiology report showing distal third diaphyseal fracture, with tibial nail and 3 interlocking screws. Both the proximal and middle interlocking screws, when compared to intraoperative images from 03/19/2023, appear to be backing out, most notable at the middle screw. No skin tenting. The fracture appears to remain stable without shortening/impaction. The lateral malleolus Boyer B fracture appears grossly unchanged from previous images; the lateral view shows interval callus posterior cortex. Calcifications seen within the lower extremity vessels. Four views right tib-fib including views of the knee ordered by different provider, [facility] dated 04/12/2023. These images were reviewed and corroborated with the radiology report showing tibial IM nail and 2 proximal interlocking screws are in good position without evidence of loosening or failure. The proximal fibular diaphyseal fracture appears stable, minimally shortened. Assessment and Plan Assessment and plan (1) Closed fracture of right tibia: Problem comment: 3.5 weeks postop right tib-fib IM rodding. Date of surgery 03/19/2023 Status: Acute (2) Closed fracture of lateral malleolus of right ankle with routine healing: Problem comment: 3.5 weeks since injury Status: Acute (3) Closed fracture of proximal end of right fibula with routine healing: Problem comment: 3.5 weeks since injury Status: Acute Plan At this time, the fracture(s) pattern overall and hardware is stable. I am less concerned with the proximal and distal fibular fractures. The tibia is stable. We acknowledge backing out of the distal locking screws, but the tibial fracture does not seem to have impacted or shortened at this time. Over time, the screws will likely continue to back out causing wound issues (which of course is concerning for the patient as he has a history of poor wound healing). At that time, screw removal will be indicated. This screw removal could occur in the clinic under local anesthetic. After speaking with Dr. Cabrera, recommendation is to remain non operative. Strict nonweightbearing on the right lower extremity. Cam boot for support. I understand compliance with this weight-bearing status will be very difficult. In my opinion, this patient has had numerous falls over the last several days, unlikely that patient return to home at this time until he has recovered more fully from this right lower extremity fracture. I also understand that patient may be verbally in disagreement with this plan. I am happy to return to the hospital to discuss plan with the patient once he is awake. Otherwise, we will follow remotely. I am on-call this weekend if there are questions or concerns. Thank you for allowing me to participate in the patient's care.
--- NOTE | 2023-04-12 13:57 | PM.IMHP1 ---
Hospitalist- H&P: NELDA History of Present Illness Date Seen: 04/12/23 Chief complaint: fall, altered mental status Narrative: Tom Rubio is a 62-year-old male with notable history of MS and prior similar visits for intoxication and altered mental status presents to the emergency department with altered mental status.? Actually looks like he has a pretty similar history to jolene from a couple of weeks ago.? Patient was found on the floor by his , naked this morning in the computer room.? Apparently this is where he usually hangs out.? She reports several falls over the last few days which is not terribly atypical for him with his history of MS.? She reports that he is not acting like himself.? She does not give any other specific feedback.? This is an identical presentation to our last visit.? It seems as though when she wakes up in the morning and finds him on the floor, she will call but is uncertain tonight of when he would have fallen.? She does confess that she knew he fell the day before and also suffered an ankle fracture a few weeks ago, at the time that I evaluated him.? For me today, he is only complaining of ankle pain, denies pain in other areas.? He is not able to answer questions for me about last meal, what time he may have fallen, what he last remembers.? He denies taking medications to me but pill bottles near him were reported by EMS.? They report gabapentin, nifedipine, metoprolol and trazodone.? I do not have record of any nifedipine and I did not hear them specifically mention his high dose anti spasmodic medication for his MS.? He denies alcohol or illicit drug use last night.? He continues to complain of right ankle pain, denies that he has taken any pain medication for this.? I would not consider him a reliable historian. I attended at arrival of EMS and watch him be unloaded in the garage, perform a very quick assessment in the hallway and we elected to go directly to CT scan. Past medical history notable for MS, previous history and physical as well as discharge summary reviewed from a couple of weeks ago.? He also has a history of hypertension and previous alcohol use.? He is seen in the ED frequently for falls and underwent repair of a fracture of the right tibia and fibula from a couple of weeks ago.? He does not arrive in a type of ankle brace or splint.? None was seen near him per EMS. Medications noted, he is likely using these, even though he denies.? He does deny allergies but we have benzocaine listed.? Previously has confess to alcohol and marijuana use but denies tonight. ROS is notable only for the right ankle pain and altered mental status from EMS and family.? We also note multiple abrasions in various stages of healing.? EMS otherwise denies times 12 systems, patient denies everything but the ankle pain. Patient's gives additional history. She does note that he falls a lot. There has been some verbal conflict in their marriage which is also witnessed again today when she is in the room with him. She notes that he has not been nonweightbearing on his right leg. Unclear if he is consistently using his cam walker boot. She does say he is attempting to transfer bed to wheelchair but puts weight on his right leg when he does so. She reports that there is evidence of multiple falls with damage to himself, the house and furniture from his falls. When I initially see him today he is difficult to arouse. When he does arouse he resists answering even simple questions of orientation. He then begins to yell out in pain but is not telling me where he is experiencing the pain. The pain seems to come and go in waves where he is crying out in pain and then very quiet but still awake. Review of Systems Narrative: Patient denies any other problems. He denies falling. He denies drug or alcohol abuse. He reports he is taking his medications as prescribed. Reports no cough or cold or fever. No shortness of breath or chest pain or abdominal pain. He has been eating normally by his report. He reports no diarrhea and no urinary problems. Reports no pain aside from pain in his right leg. 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 (ICD-10) Lumbar spondylosis ?M47.816 - Spondylosis without myelopathy or radiculopathy, lumbar region (ICD-10) Abscess of right thigh ?L02.415 - Cutaneous abscess of right lower limb (ICD-10) Amputation of right great toe ?S98.111A - Complete traumatic amputation of right great toe, initial encounter (ICD-10) Chronic pain of right ankle ?M25.571 - Pain in right ankle and joints of right foot (ICD-10) ?G89.29 - Other chronic pain (ICD-10) Generalized hyperhidrosis ?R61 - Generalized hyperhidrosis (ICD-10) Seasonal allergies ?J30.2 - Other seasonal allergic rhinitis (ICD-10) Bilateral shoulder pain ?M25.511 - Pain in right shoulder (ICD-10) ?M25.512 - Pain in left shoulder (ICD-10) Optic atrophy ?H47.20 - Unspecified optic atrophy (ICD-10) Multiple pulmonary nodules ?R91.8 - Other nonspecific abnormal finding of lung field (ICD-10) Insomnia ?G47.00 - Insomnia, unspecified (ICD-10) History of falling ?Z91.81 - History of falling (ICD-10) Unstable gait ?R26.81 - Unsteadiness on feet (ICD-10) Ataxia ?R27.0 - Ataxia, unspecified (ICD-10) Anemia ?D64.9 - Anemia, unspecified (ICD-10) Sleep pattern disturbance ?G47.20 - Circadian rhythm sleep disorder, unspecified type (ICD-10) Obstructive sleep apnea ?G47.33 - Obstructive sleep apnea (adult) (pediatric) (ICD-10) Chronic headaches ?R51.9 - Headache, unspecified (ICD-10) ?G89.29 - Other chronic pain (ICD-10) Raynaud's syndrome ?I73.00 - Raynaud's syndrome without gangrene (ICD-10) Habitual alcohol use ?F10.90 - Alcohol use, unspecified, uncomplicated (ICD-10) Vapes nicotine containing substance ?Z72.0 - Tobacco use (ICD-10) Former smoker ?Z87.891 - Personal history of nicotine dependence (ICD-10) Essential hypertension ?I10 - Essential (primary) hypertension (ICD-10) Displacement of lumbar intervertebral disc without myelopathy ?M51.26 - Other intervertebral disc displacement, lumbar region (ICD-10) Lumbar disc herniation with radiculopathy ?M51.16 - Intervertebral disc disorders with radiculopathy, lumbar region (ICD-10) Multiple sclerosis ?G35 - Multiple sclerosis (ICD-10) Bilateral inguinal hernia ?K40.20 - Bilateral inguinal hernia, without obstruction or gangrene, not specified as recurrent (ICD-10) Surgical History Status post vasectomy ?Z98.52 - Vasectomy status (ICD-10) Status post amputation of right great toe ?Z89.411 - Acquired absence of right great toe (ICD-10) Hx of bursectomy ?Z98.890 - Other specified postprocedural states (ICD-10) S/P bilateral inguinal herniorrhaphy ?Z98.890 - Other specified postprocedural states (ICD-10) ?Z87.19 - Personal history of other diseases of the digestive system (ICD-10) S/p bilateral carpal tunnel release ?Z98.890 - Other specified postprocedural states (ICD-10) Status post left hip replacement ?Z96.642 - Presence of left artificial hip joint (ICD-10) Family History Father Diabetes Social History Narrative: He lives with his . In the past he has had abuse of alcohol and cannabis but currently denies any. [facility] His does not think he has been to the neurologist for his MS in quite some time. What is your current living situation?: I presently have a place to live Problems where you live: no known problems Problems where you live details: none In the past 12 months, utilities in danger of being shut off: no In the past 12 mos, have been you worried that your food would run out before you had money to buy more?: never true In the past 12 mos, the food you bought just didn't last and you didn't have money to buy more?: never true Highest level of school completed/degree received: decline to answer Smoking Status: Former smoker Do you use any of these nicotine containing products: Vaping Products Smokeless tobacco user: other Smokeless tobacco user details: marijuana Second hand tobacco smoke exposure: No How often do you have a drink containing alcohol: 2-4 times a month Alcohol type details: Yes drinks How many standard drinks containing alcohol do you have on a typical day: 5 or 6 How often do you have six or more drinks on one occasion: Daily or almost daily AUDIT-C Alcohol total score: 8 Non-prescribed substance use: marijuana (any form) Non-prescribed substance use details: from medical hx Caffeine: Yes How often does anyone, including family, friends and others, physically hurt you: never How often does anyone, including family, friends and others, insult or talk down to you: rarely How often does anyone, including family, friends and others, threaten you with harm: never How often does anyone, including family, friends and others, scream or curse at you: rarely service: Yes Meds Home Medications and Allergies Home Medications Medication Instructions Recorded Confirmed Type baclofen 20 mg tablet 40 mg PO TID 03/18/23 04/12/23 History gabapentin 400 mg capsule 1,200 mg PO TID 03/18/23 04/12/23 History ibuprofen 800 mg tablet 800 mg PO TID 03/18/23 04/12/23 History metoprolol tartrate 50 mg tablet 50 mg PO BID 03/18/23 04/12/23 History trazodone 100 mg tablet 100 mg PO QPM 03/18/23 04/12/23 History Allergies Allergy/AdvReac Type Severity Reaction Status Date / Time benzocaine Allergy Verified 03/25/23 11:00 Exam Narrative: Exam Narrative: Fluctuating mental status during the day today from somnolent and difficult to arouse to writhing and crying out in pain to awake and moving with eyes open but refusing to talk. Head is notable for multiple areas of bruising and abrasions over his frontal scalp primarily. Neck is supple without obvious tenderness. Respirations are clear to auscultation. Cardiovascular: S1, S2, regular rate and rhythm. Abdomen is soft without tenderness or mass. Upper extremities notable for multiple bruises and abrasions especially on the extensor forearms. He moves upper extremities fairly well. Lower extremities noted for relatively severe superficial abrasions and bruises again noted over his anterior shins and knees. He moves all 4 extremities well though poorly cooperates with any evaluation of his right lower extremity. He has some ulcerations on the tips of his toes on both feet which are bandaged. They did not appear to be significantly erythematous or inflamed. Cam walker boot is removed and shows no obvious redness warmth or problems with healing of the surgical wounds. Const: Vital Signs, click to edit/add: Vital Signs - 24 hr 04/12/23 07:00 04/12/23 07:03 04/12/23 07:04 Temperature 97.4 F L Pulse Rate 52 L 50 L Pulse Rate [Pulse Oximeter] 48 L Respiratory Rate 16 Blood Pressure 142/91 H Blood Pressure [Le ft Arm] Blood Pressure [Le ft Upper Arm] 142/91 H Pulse Oximetry 95 100 90 Oxygen Delivery Me thod Room Air Oxygen Flow Rate 04/12/23 07:06 04/12/23 07:11 04/12/23 07:17 Temperature Pulse Rate 49 L 55 L Pulse Rate [Pulse Oximeter] Respiratory Rate Blood Pressure 124/81 139/83 137/82 Blood Pressure [Le ft Arm] Blood Pressure [Le ft Upper Arm] Pulse Oximetry 96 98 Oxygen Delivery Me thod Oxygen Flow Rate 04/12/23 07:20 04/12/23 07:22 04/12/23 07:26 Temperature Pulse Rate 49 L 47 L Pulse Rate [Pulse Oximeter] Respiratory Rate Blood Pressure 132/75 139/69 Blood Pressure [Le ft Arm] Blood Pressure [Le ft Upper Arm] Pulse Oximetry 86 L 96 100 Oxygen Delivery Me thod Nasal Cannula Oxygen Flow Rate 2 04/12/23 07:30 04/12/23 07:32 04/12/23 07:36 Temperature Pulse Rate 54 L 85 Pulse Rate [Pulse Oximeter] Respiratory Rate Blood Pressure 128/91 H 131/70 Blood Pressure [Le ft Arm] Blood Pressure [Le ft Upper Arm] Pulse Oximetry 89 99 Oxygen Delivery Me thod Oxygen Flow Rate 04/12/23 07:44 04/12/23 07:46 04/12/23 08:01 Temperature Pulse Rate Pulse Rate [Pulse Oximeter] Respiratory Rate Blood Pressure 141/75 H 133/78 106/72 Blood Pressure [Le ft Arm] Blood Pressure [Le ft Upper Arm] Pulse Oximetry Oxygen Delivery Me thod Oxygen Flow Rate 04/12/23 08:31 04/12/23 09:15 04/12/23 09:15 Temperature 97.7 F Pulse Rate Pulse Rate [Pulse Oximeter] 74 Respiratory Rate 12 Blood Pressure 119/81 Blood Pressure [Le ft Arm] 148/117 H Blood Pressure [Le ft Upper Arm] Pulse Oximetry 99 99 Oxygen Delivery Me thod Room Air Room Air Oxygen Flow Rate 04/12/23 11:37 Temperature 97.1 F L Pulse Rate Pulse Rate [Pulse Oximeter] 50 L Respiratory Rate 12 Blood Pressure Blood Pressure [Le ft Arm] 107/66 Blood Pressure [Le ft Upper Arm] Pulse Oximetry 94 Oxygen Delivery Me thod Room Air Oxygen Flow Rate Documenting provider has reviewed patient's vital signs: yes Hospitalist - H&P: Result Labs Labs: Short CBC 04/12/23 Range/Units 07:15 WBC 13.57 H (4.50-11.00) K/uL Hgb 11.3 L (13.5-17.5) gm/dL Hct 36.5 L (37.0-53.0) % Plt Count 354 (140-440) K/uL BMP 04/12/23 07:15 Sodium 138 Potassium 4.8 Chloride 106 Carbon Dioxide 22 BUN 17 Creatinine 1.1 Glucose 103 Calcium 9.4 Cardiac Enzymes 04/12/23 Range/Units 07:15 Total Creatine Kinase 446 H (54-186) U/L Troponin I 0.03 (0.01-0.04) ng/mL Liver Function 04/12/23 Range/Units 07:15 Total Bilirubin 0.9 (0.1-1.5) mg/dL AST 50 H (12-35) U/L ALT 16 (4-50) U/L Alkaline Phosphatase 136 (40-150) U/L Albumin 2.3 L (3.3-5.0) g/dL Urine 04/12/23 Range/Units 11:55 Urine Color Yellow (Yellow) Urine Appearance Clear (Clear) Urine pH 5.5 (5.0-8.5) Ur Specific Conception 1.020 (1.000-1.030) Urine Protein Negative (Negative) Urine Glucose (UA) Negative (Negative) Imaging Tib-fib and ankle: Attestation: I have reviewed the pertinent imaging results. (Right tib-fib and ankle show proximal and distal fibular fractures and intramedullary nataliya with fixation of a distal tibial spiral fracture. No significant change from prior) Assessment and Plan Assessment and plan (1) History of falling: Problem comment: Frequent daily falls with evidence of multiple injuries to himself and according to the to the household furniture. This is an acute on chronic problem. Not clear if he is safe to return home. He is advised to be nonweightbearing on his right lower extremity but appears unable to do that. Patient indicates that he is quite anxious to go home. Status: Acute (2) Acute delirium: Problem comment: Multifactorial: Polypharmacy, marijuana, alcohol use. Mental status is fluctuating. Cause for this is unclear though his notes, he gets that way. Status: Acute (3) Multiple sclerosis: Problem comment: Significant underlying contributor to the falls. Recommend he get outpatient follow-up with his neurologist Status: Acute (4) Ataxia: Problem comment: Severe especially in the context of nonweightbearing on right lower extremity Status: Acute (5) Sinus bradycardia: Problem comment: Decrease metoprolol dose Status: Acute (6) Closed fracture of right tibia and fibula: Problem comment: Date of surgery 03/19/2023 . No new fracture or bony injury. Conservative management with nonweightbearing and follow up with Dr. Cabrera Status: Acute (7) Habitual alcohol use: Problem comment: Uncertain whether he has continued to use alcohol. Urine drug screen with THC. Uncertain whether this is playing a role in his falls Status: Acute (8) Elevated lactic acid level: Problem comment: Patient had elevated lactic acid level, white blood count. Evaluation did not show a definite source of fever or sepsis. Antibiotics were not started but blood in urine cultures have been obtained Status: Acute Plan Patient is admitted to the hospital for evaluation of his ability to function safely in the home. His is in a wheelchair and now he is in a wheelchair with bed to chair transfers using a walker. It sounds like this is not working and that he is not able to do this without falling down relatively frequently. PT and OT to evaluate. Total time spent today is 75 minutes, 55 minutes in coordination of care and discussion with patient, his and other healthcare providers about management of altered mental status safety in ambulation and plan of disposition
[2023-04-12] MEDS: ACETAMINOPHEN 500 MG TABLET 1000 MG PO (16:41)
--- NOTE | 2023-04-12 19:20 | PC.NURSE ---
End of Shift: Patient is very restless or sleeping. Patient knows where he is and why, could tell me year, and thought it was April, but knew it was Saturday. Patient vitally stable, lungs clear, BS WNL, IV intact. There are times where he seems with it, then not at all, sometimes he will rate pain, other times he won't. This business writer had to feed patient dinner, be was dropping his food and knocking items over. Patient did have a period were he told me he did not have any pain. Patient urinated in urinal once 300ml, otherwise incontinent in his brief. Many times he will say he has to urinate then he does not urinate. Patient does often shout, he was calling out for is mother today. Patient reports he wants to go home. Patient did set alarm off once today by getting up to side of bed. Patient has multiple bruises, abrasion, scratches all over his body, especially on his legs, and a hematoma on his forehead. Patient given morphine x2, tylenol x1, and oxy 2.5mg x2.
[2023-04-12] MEDS: THIAMINE 100 MG TABLET PO (19:51)
--- NOTE | 2023-04-12 20:00 | W.PM.CROSSCO ---
Subjective Subjective Date Seen: 04/12/23 Interval history: Patient noted to be agitated, restless. Called and discussed with , who notes that he does drink beer almost every night of the week, but doesn't believe he's ever had a history of ETOH withdrawal. Objective Objective Data Details: Patient is awake and appears agitated, fidgeting in bed. Assessment and Plan Assessment and plan (1) Acute delirium: Problem comment: - Multifactorial: Polypharmacy, marijuana, alcohol use. Mental status is fluctuating. Cause for this is unclear though his notes, he gets that way - concern for ETOH withdrawal; CIWAs started 04/12 and given Phenobarbital 04/12 in the evening Status: Acute Plan - per above
[2023-04-12] MEDS: PHENobarbitaL 260 MG in 0.9 % SODIUM CHLORIDE 100 ml 100 ML 208 MG IVPB (20:56)
[2023-04-12] MEDS: ASPIRIN 81 MG TAB.CHEW PO (20:56)
[2023-04-12] MEDS: METOPROLOL TARTRATE 25 MG TABLET PO (20:56)
[2023-04-12] MEDS: LORazepam 1 MG TABLET PO (20:57)
[2023-04-12] MEDS: TRAZODONE HCL 50 MG TABLET PO (20:57)
[2023-04-12] MEDS: SODIUM CHLORIDE 0.9 % (FLUSH) 10 ML SYRINGE 5 ML IVF ×2 (20:58→23:54)
[2023-04-12] MEDS: LORazepam 2 MG/ML inj IVP (23:53)
[2023-04-13] VITALS (11 sets, daily range): BP systolic 108–167; BP diastolic 62–97; PULSE 65–106; RESP 16–20; TEMP 36.4–37.9; O2SAT 96–99
[2023-04-13] MEDS: 0.9 % SODIUM CHLORIDE 250 ml IV (00:30)
[2023-04-13] MEDS: OXYCODONE 5 MG TABLET 2.5 MG PO ×2 (05:04→10:11)
--- NOTE | 2023-04-13 05:21 | PC.NURSE ---
END OF SHIFT NOTE: PT AGITATED AND YELLING. PT THRASHING AROUND IN BED AND ATTEMPTING TO GET OUT OF BED. ORIENTED TO SELF, PLACE, TIME OFF BY MONTH (PT SAID APRIL. IT IS MARCH). PT DENIED CP, SOB, N/V. BEDREST AT THIS TIME FOR SAFETY. VSS ON RA; AFEBRILE. BED ALARM ON AND CALL LIGHT WITHIN PT?S REACH. KATJA SITTING WITH PT 1:1. MULTIPLE ABRASIONS IN VARIOUS STAGES OF HEALING THROUGHOUT PT?S BODY (ESPECIALLY TO HEAD AND BLE.) CIWA?S RANGE FROM 1-14 (SEE FLOWSHEET IN DOCUMENTS) ATIVAN USED PER PROTOCOL. 1X ORDER OF PHENOBARBITAL ADMINISTERED. OXYCODONE ADMINISTERED FOR PAIN.?
[2023-04-13 06:55] LABS: Lactate* 1.8 mmol/L (0.5-1.9)
[2023-04-13 07:04] LABS: Basophils Absolute Auto 0.04 K/uL (0.00-0.30); Basophils Percent Auto 0.6 % (0.0-3.0); Eosinophils Absolute Auto 0.08 K/uL (0.00-0.50); Eosinophils Percent Auto 1.1 % (0.0-7.0); Hematocrit 35.2 % (37.0-53.0); Hemoglobin* 10.4 gm/dL (13.5-17.5); Immature Granulocytes Abs Auto 0.01 K/uL (0.00-0.30); Immature Granulocytes Pct Auto 0.1 %; Lymphocytes Percent Auto 18.5 % (20-44); Mean Corpuscular HGB Conc 30 gm/dL (32-36); Mean Corpuscular Hemoglobin 26 pg (26-34); Mean Corpuscular Volume 87 fL (80-100); Monocytes Percent Auto 15.6 % (0.0-11.0); Neutrophils Absolute Auto 4.51 K/uL (1.7-7.0); Neutrophils Percent Auto 64.1 % (42.0-72.0); Platelet Count* 256 K/uL (140-440); RDW Coefficient of Variation % 15.1 % (11.5-15.5); Red Blood Count 4.04 m/uL (4.30-5.90); White Blood Count* 7.04 K/uL (4.50-11.00)
[2023-04-13 07:06] LABS: Slide Review Reflex No
[2023-04-13 07:25] LABS: Chloride* 110 mmol/L (96-114); Potassium* 4.5 mmol/L (3.6-5.1); Sodium* 139 mmol/L (135-149)
[2023-04-13 07:27] LABS: Creatine Kinase* 513 U/L (54-186); Creatinine* 0.9 mg/dL (0.5-1.5); Estimated Glomerular Filt Rate 98 ml/min
[2023-04-13 07:28] LABS: Blood Urea Nitrogen* 14 mg/dL (7-30); Calcium* 8.7 mg/dL (8.4-10.6); Carbon Dioxide* 23 mmol/L (20-32); Glucose* 99 mg/dL (60-115)
[2023-04-13 07:31] LABS: C Reactive Protein* 6.8 mg/dL (0.5-1.0)
[2023-04-13 08:07] LABS: Thyroid Stimulating Hormone* 0.801 uIU/mL (0.270-4.20)
[2023-04-13] MEDS: LORazepam 2 MG/ML inj IVP (08:46)
[2023-04-13] MEDS: SODIUM CHLORIDE 0.9 % (FLUSH) 10 ML SYRINGE 5 ML IVF ×2 (08:46→21:00)
--- NOTE | 2023-04-13 09:14 | REH.PT ---
PT eval held today. Pt is still agitated and noncompliant to cares. Received Ativan this AM.
--- NOTE | 2023-04-13 11:56 | REH.OT ---
OT eval held today, per nursing report of agitation and noncompliance with cares. Will attempt when pt. able to participate in eval.
[2023-04-13] MEDS: IBUPROFEN 400 MG TABLET 800 MG PO ×2 (12:07→18:06)
[2023-04-13] MEDS: BACLOFEN 10 MG TABLET 40 MG PO ×2 (12:08→20:59)
--- NOTE | 2023-04-13 14:13 | PM.IMPN1 ---
Progress Note: A&P Assessment and plan (1) Acute delirium: Problem details: - Multifactorial: Polypharmacy, marijuana, alcohol use. Mental status is fluctuating. Cause for this is unclear though his notes, he gets that way - concern for ETOH withdrawal; CIWAs started 04/12 and given Phenobarbital 04/12 in the evening Status: Acute (2) Closed fracture of right tibia and fibula: Problem details: Date of surgery 03/19/2023 . No new fracture or bony injury. Conservative management with nonweightbearing and follow up with Dr. Cabrera Status: Acute (3) Multiple sclerosis: Problem details: Significant underlying contributor to the falls. Recommend he get outpatient follow-up with his neurologist Status: Acute (4) History of falling: Problem details: Frequent daily falls with evidence of multiple injuries to himself and according to the to the household furniture. This is an acute on chronic problem. Not clear if he is safe to return home. He is advised to be nonweightbearing on his right lower extremity but appears unable to do that. Patient indicates that he is quite anxious to go home. Status: Acute (5) Ataxia: Problem details: Severe especially in the context of nonweightbearing on right lower extremity Status: Acute (6) Habitual alcohol use: Problem details: Uncertain whether he has continued to use alcohol. Urine drug screen with THC. Uncertain whether this is playing a role in his falls Status: Acute (7) Sinus bradycardia: Problem details: Decrease metoprolol dose Status: Acute (8) Obstructive sleep apnea: Status: Acute (9) Polypharmacy: Status: Acute (10) Rhabdomyolysis: Status: Acute Plan 1. Reviewed my impression with the patient as best as I could. He is not interacting well. 2. I call and discuss the case with his , Jaja, . Updated her on his condition and answered her questions. In the course of our conversation she indicates that he has similar episodes like this at their home. At home sometimes he is unable to get up after he falls and thus they summon EMS to come and help them. Last drink alcohol the night prior to his coming to the hospital emergency department. Ordinarily will drink she indicates 1-2 drinks of alcohol daily. She does not recall him having withdrawals in the past from alcohol. According to , the last alcohol consumption was about 48 hours prior to presentation to the hospital. indicates how at home he likes to drink diet Coke, lemon grayling soda, red bear soda, and eat vanilla ice cream. She also indicates that she would like him back home as soon as possible so he can help her. 3. Continue with CIWA protocol monitoring and intervention for now. 4. Continue with laboratory monitoring. Time Spent With Patient Total time spent: 50 minutes Subjective Time Seen by Provider: 10:00 Date Seen: 04/13/23 Interval history: Hospital day 2. Tom Rubio is a 62-year-old man with notable history of MS and prior similar visits for intoxication and altered mental status, presents to the emergency department presently with altered mental status.? On the morning that he presented to the hospital, he was found on the floor in their computer room naked and not interacting appropriately. She called EMS for help. They brought him into our emergency department for assessment. Roughly 2 weeks prior to this current presentation he had a very similar presentation in which he was found to have a right tib-fib fracture that required surgical repair. Was told to be nonweightbearing on the affected side. Per he has not been nonweightbearing on the affected side. Indeed when he comes in this time he has no apparatus on to indicate that he has been striving to be nonweightbearing. Patient has been quite sleepy here. When he is awake he is often agitated and fidgety. When I speak with his today she indicates that he does indeed sleep a lot in their home and does have episodes being fidgety but he is clearly more sleepy now than when he normally is. This morning he is quite asleep. I call out his name and he responds only by opening his eyes briefly and grunting. Moves all 4 extremities. When I examine him later in the day his condition is not any different. No obvious focal motor neurologic deficits noted. Exam Narrative: Exam Narrative: Laying in bed with head of bed elevated about 30?. Arouses only briefly to call of his name. Falls asleep again readily. Refuses to take his medications today. Lungs are clear to auscultation. Heart tones with regular rhythm. Abdomen with active bowel sounds, soft, nontender. Skin with multiple bruises, superficial lacerations and abrasions, Const: Vital Signs, click to edit/add: Vital Signs - 24 hr 04/12/23 15:30 04/12/23 15:50 04/12/23 19:00 Temperature 97.7 F 97.7 F Pulse Rate [Pulse Oximeter] 67 67 100 Respiratory Rate 16 16 24 Blood Pressure [Le ft Arm] 162/60 H 127/101 H Pulse Oximetry 92 100 Oxygen Delivery Me thod Room Air Room Air Oxygen Flow Rate 04/12/23 20:40 04/12/23 20:44 04/12/23 23:00 Temperature 97.7 F 97.9 F Pulse Rate [Pulse Oximeter] 100 100 72 Respiratory Rate 24 24 22 Blood Pressure [Le ft Arm] 127/101 H 139/68 Pulse Oximetry 100 100 Oxygen Delivery Me thod Room Air Room Air Oxygen Flow Rate 04/13/23 03:00 04/13/23 08:22 04/13/23 08:22 Temperature 97.7 F 97.5 F L Pulse Rate [Pulse Oximeter] 76 65 65 Respiratory Rate 16 18 18 Blood Pressure [Le ft Arm] 138/90 H 125/62 Pulse Oximetry 97 97 Oxygen Delivery Me thod Room Air Room Air Oxygen Flow Rate 04/13/23 08:34 04/13/23 10:00 04/13/23 11:00 Temperature 97.5 F L 98.1 F 99 F Pulse Rate [Pulse Oximeter] 65 91 97 Respiratory Rate 18 19 19 Blood Pressure [Le ft Arm] 125/62 126/80 167/97 H Pulse Oximetry 97 96 96 Oxygen Delivery Me thod Room Air Room Air Room Air Oxygen Flow Rate 2 04/13/23 13:08 Temperature 98.6 F Pulse Rate [Pulse Oximeter] 94 Respiratory Rate 16 Blood Pressure [Le ft Arm] 140/84 H Pulse Oximetry 98 Oxygen Delivery Me thod Room Air Oxygen Flow Rate Documenting provider has reviewed patient's vital signs: yes Labs Labs: Laboratory Results - last 24 hr 04/13/23 06:47 WBC 7.04 RBC 4.04 L Hgb 10.4 L Hct 35.2 L MCV 87 MCH 26 MCHC 30 L RDW Coeff of Na 15.1 Plt Count 256 Neut % (Auto) 64.1 Lymph % (Auto) 18.5 L [place] % (Auto) 15.6 H Eos % (Auto) 1.1 Baso % (Auto) 0.6 Neut # (Auto) 4.51 Lymph # (Auto) 1.30 [place] # (Auto) 1.10 H Eos # (Auto) 0.08 Baso # (Auto) 0.04 Sodium 139 Potassium 4.5 Chloride 110 Carbon Dioxide 23 BUN 14 Creatinine 0.9 Estimated GFR 98 Glucose 99 Lactate 1.8 Calcium 8.7 Magnesium 2.0 Total Creatine Kinase 513 H C-Reactive Protein 6.8 H TSH 0.801
--- NOTE | 2023-04-13 14:48 | PC.NURSE ---
Patient has been screaming out and swearing so loud he can be heard all the way to the nursing station. Went in to talk with patient and explained to him that he is in a hospital and we would appreciate if he wouldn't disturb other patients with his screaming out and swearing. Stated that he will F do as he pleases. Currently have a practical nursing faculty at his bedside to keep him safe from falling. Currently is refusing to let us do any personal cares on him even though its been explain that we don't want his skin to break down. His reponse was who f cares.
[2023-04-13] MEDS: OLANZapine 5 MG/ML inj IVP (14:53)
[2023-04-13] MEDS: 0.9 % SODIUM CHLORIDE 500 ML 500 ML IV (15:05)
[2023-04-13] MEDS: GABAPENTIN 300 MG CAPSULE 600 MG PO ×2 (15:07→21:00)
--- NOTE | 2023-04-13 16:19 | PC.NURSE ---
07-15: Patient in bed this shift, refusing cares and interactions most of the day. Refused eating, brief changes and stated if KATJA came near him with urinal he would urinate on her. Patient swearing and yelling off and on between sleeping. Attempted redirecting and informed patient that such behavior will not be tolerated by staff, and that we are only here to help him remain safe and heal. Patient responded by mimicking whatever RN stated at bedside, and accused RNs of taking over the hospital from the doctors! Patient attempted grabbing at staff this afternoon. 5mg olanzapine administered for agitation. Shift report given to SIRIA Perez. Pain in R leg rated 4/10, seemed to be somewhat alleviated by 2.5mg oxycodone as patient then able to rest for a short period. Refused to allow RN to remove CAM boot to assess leg/foot. Multiple bruises/scrapes/scratches noted throughout head, face, and all extremities. Black eye R side noted. Seizure pads placed on bed to minimize potential injury when patient thrashes about in bed.
[2023-04-13] MEDS: 0.9 % SODIUM CHLORIDE 1000 ml 1,000 ML 125 ML IV ×2 (16:23→23:12)
[2023-04-13] MEDS: THIAMINE 100 MG TABLET PO (18:06)
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
[2023-04-13] MEDS: METOPROLOL TARTRATE 25 MG TABLET PO (20:59)
[2023-04-13] MEDS: ASPIRIN 81 MG TAB.CHEW PO (20:59)
[2023-04-13] MEDS: TRAZODONE HCL 50 MG TABLET PO (21:00)
[2023-04-14] VITALS (10 sets, daily range): BP systolic 96–150; BP diastolic 63–82; PULSE 63–92; RESP 16–18; TEMP 36.8–37.1; O2SAT 97–98
[2023-04-14] MEDS: OXYCODONE 5 MG TABLET 2.5 MG PO ×4 (05:01→22:48)
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
[2023-04-14 06:42] LABS: HCO3 VBG 22 mmol/L (21-28); Lactate* 0.9 mmol/L (0.5-1.9); PCO2 VBG 36 mmHG (40-50); PO2 VBG 92.8 mmHG (25-47); pH VBG 7.396 (7.32-7.43)
[2023-04-14 06:49] LABS: Hematocrit 29.4 % (37.0-53.0); Hemoglobin* 8.9 gm/dL (13.5-17.5); Mean Corpuscular HGB Conc 30 gm/dL (32-36); Mean Corpuscular Hemoglobin 26 pg (26-34); Mean Corpuscular Volume 86 fL (80-100); Platelet Count* 231 K/uL (140-440); Red Blood Count 3.43 m/uL (4.30-5.90); White Blood Count* 4.89 K/uL (4.50-11.00)
[2023-04-14 06:55] LABS: Slide Review Reflex No
[2023-04-14] MEDS: 0.9 % SODIUM CHLORIDE 1000 ml 1,000 ML 125 ML IV (07:16)
[2023-04-14 07:23] LABS: Chloride* 112 mmol/L (96-114); Potassium* 3.7 mmol/L (3.6-5.1); Sodium* 139 mmol/L (135-149)
[2023-04-14 07:25] LABS: Creatine Kinase* 358 U/L (54-186); Creatinine* 0.7 mg/dL (0.5-1.5); Estimated Glomerular Filt Rate 105 ml/min
[2023-04-14 07:26] LABS: Blood Urea Nitrogen* 13 mg/dL (7-30); Carbon Dioxide* 23 mmol/L (20-32); Glucose* 89 mg/dL (60-115); Phosphorus* 3.4 mg/dL (2.5-4.5)
[2023-04-14 07:27] LABS: Calcium* 8.1 mg/dL (8.4-10.6); Magnesium* 1.8 mg/dL (1.5-2.6)
[2023-04-14 07:29] LABS: C Reactive Protein* 7.1 mg/dL (0.5-1.0)
[2023-04-14 07:47] LABS: Thyroid Stimulating Hormone* 0.546 uIU/mL (0.270-4.20)
--- NOTE | 2023-04-14 07:51 | REH.PT ---
PT/OT vincent held d/t pt being aggressive and withdrawing.
[2023-04-14] MEDS: IBUPROFEN 400 MG TABLET 800 MG PO ×3 (08:20→17:54)
[2023-04-14] MEDS: ASPIRIN 81 MG TAB.CHEW PO ×2 (08:21→20:34)
[2023-04-14] MEDS: FOLIC ACID 1 MG TABLET PO (08:21)
[2023-04-14] MEDS: BACLOFEN 10 MG TABLET 40 MG PO ×3 (08:21→20:34)
[2023-04-14] MEDS: GABAPENTIN 300 MG CAPSULE 600 MG PO ×3 (08:21→20:34)
[2023-04-14] MEDS: METOPROLOL TARTRATE 25 MG TABLET PO ×2 (08:22→20:34)
--- NOTE | 2023-04-14 13:49 | PM.IMPN1 ---
Progress Note: A&P Assessment and plan (1) Acute delirium: Problem details: - Multifactorial: Polypharmacy, marijuana, alcohol use and withdrawal. Mental status is much improved today. - concern for ETOH withdrawal; CIWAs started 04/12 and was administered Phenobarbital 04/12. Has not required CIWA interventions for about 24 hours. Status: Acute (2) Closed fracture of right tibia and fibula: Problem details: Date of surgery 03/19/2023 . No new fracture or bony injury. Conservative management with nonweightbearing and follow up with Dr. Cabrera. Will ask Orthopedic surgery to comment on immobilization efforts in hospital and at home. Status: Acute (3) Multiple sclerosis: Problem details: Significant underlying contributor to the falls. Recommend he get outpatient follow-up with his neurologist Status: Acute (4) History of falling: Problem details: Frequent daily falls with evidence of multiple injuries to himself and according to the to the household furniture. This is an acute on chronic problem. Not clear if he is safe to return home. He is advised to be nonweightbearing on his right lower extremity but appears unable to do that. Patient indicates that he is quite anxious to go home. Discussed the possibility of transitional care unit services with patient which he declines. He is willing to consider home physical therapy and occupational therapy. Status: Acute (5) Ataxia: Problem details: Severe especially in the context of nonweightbearing on right lower extremity. Status: Acute (6) Habitual alcohol use: Problem details: Uncertain whether he has continued to use alcohol. Urine drug screen with THC. Concerning that he may have had delirium tremens. Certainly warrants consideration discussion with patient. Consider alcohol dependency assessment with treatment recommendations if warranted. Status: Acute (7) Sinus bradycardia: Problem details: Decrease metoprolol dose. Status: Acute (8) Obstructive sleep apnea: Status: Acute (9) Polypharmacy: Problem details: Suspect this is a major reason for his acute delirium. Status: Acute (10) Rhabdomyolysis: Problem details: Slowly improving. Will discontinue the IV fluids at this time and continue to monitor creatine kinase levels. Status: Acute Plan 1. Reviewed impression with patient. 2. Continue with current treatment plans. 3. Work toward trying to establish a safe discharge plan for the patient to return home with home care services including physical therapy, occupational therapy, and nursing to assist with medication management. Time Spent With Patient Total time spent: 45 minutes Subjective Time Seen by Provider: 10:00 Date Seen: 04/14/23 Interval history: Hospital day 3. Tom Rubio is a 62-year-old man with notable history of MS and prior similar visits for intoxication and altered mental status, presents to the emergency department presently with altered mental status.? On the morning that he presented to the hospital, he was found on the floor by his in their computer room naked and not interacting appropriately. She called EMS for help. They brought him into our emergency department for assessment. Roughly 2 weeks prior to this current presentation he had a very similar presentation in which he was found to have a right tib-fib fracture that required surgical repair. Was told to be nonweightbearing on the affected side. Per he has not been nonweightbearing on the affected side. Indeed when he comes in this time he has no apparatus on to indicate that he has been striving to be nonweightbearing. Patient has been quite sleepy here. When he is awake he is often agitated and fidgety. When I speak with his on 04/13/2023 she indicated that he routinely he sleeps a lot in their home and does have episodes of being fidgety but he is clearly more sleepy now than what he normally is. Throughout the day yesterday he was quite sleepy. I would call out his name and he responded only by opening his eyes briefly and grunting. Moved all 4 extremities. He had no obvious focal motor neurologic deficits noted. Had multiple stages of contusions, ecchymoses, abrasions, and laceration on his scalp arms and legs. Patient more awake, interactive, less agitated today. Able to engage in conversation. Notes that he has discomfort on his affected right lower extremity from the Cam boot that as presently on him. When we loosen this or remove it he states the discomfort is resolved. He is hungry and thirsty today. Eating and drinking today. Denies nausea or vomiting. Expresses desire to go home. Willing to talk about it. Working with physical therapy, occupational therapy, nursing staff. More engaged. Exam Narrative: Exam Narrative: Appears comfortable and in no acute distress sitting in recliner chair at side of bed. Vision and hearing are grossly normal. Alert, oriented to self, place, time, situation. Has little recall about events that have transpired over the last few days. Articulate, cooperative. Willing to work with staff today. T-max yesterday 100.3? F. He is afebrile today. At rest patient had tachycardia last night which is now resolved. At rest yesterday, patient also had periods of hypertension. Resolved now. Lungs are clear to auscultation. Heart tones with regular rhythm, normal S1-S2. No murmur, gallop, or rub. Abdomen with active bowel sounds, soft, nontender. Moves all 4 extremities. Skin with multiple ecchymoses around face scalp upper and lower extremities. No obvious areas of fluctuance, induration, erythema, or warmth. No obvious areas of rash, petechiae, or open wounds. Const: Vital Signs, click to edit/add: Vital Signs - 24 hr 04/13/23 15:14 04/13/23 15:14 04/13/23 15:14 Temperature 98.9 F 98.9 F Pulse Rate [Pulse Oximeter] 101 H 101 H 101 H Respiratory Rate 16 16 16 Blood Pressure [Le ft Arm] 120/96 H 120/96 H Pulse Oximetry 99 99 Oxygen Delivery Nm thod Room Air Room Air 04/13/23 20:00 04/13/23 21:00 04/13/23 21:59 Temperature 100.3 F H 98.8 F Pulse Rate [Pulse Oximeter] 106 H 106 H Respiratory Rate 18 18 Blood Pressure [Le ft Arm] 149/87 H Pulse Oximetry 96 Oxygen Delivery Nm thod Room Air 04/13/23 23:00 04/14/23 03:00 04/14/23 07:00 Temperature 98.2 F Pulse Rate [Pulse Oximeter] 74 76 Respiratory Rate 20 16 18 Blood Pressure [Le ft Arm] 108/66 123/74 Pulse Oximetry 97 Oxygen Delivery Nm thod Room Air Room Air Room Air 04/14/23 07:00 04/14/23 09:00 04/14/23 11:00 Temperature 98.6 F Pulse Rate [Pulse Oximeter] 76 76 74 Respiratory Rate 18 18 18 Blood Pressure [Le ft Arm] 124/74 130/79 Pulse Oximetry 97 97 [facility] Documenting provider has reviewed patient's vital signs: yes Labs Labs: Laboratory Results - last 24 hr 04/14/23 06:33 WBC 4.89 RBC 3.43 L Hgb 8.9 L Hct 29.4 L MCV 86 MCH 26 MCHC 30 L Plt Count 231 VBG pH 7.396 VBG pCO2 36 L VBG pO2 92.8 H VBG HCO3 22 Sodium 139 Potassium 3.7 Chloride 112 Carbon Dioxide 23 BUN 13 Creatinine 0.7 Estimated GFR 105 Glucose 89 Lactate 0.9 Calcium 8.1 L Phosphorus 3.4 Magnesium 1.8 Total Creatine Kinase 358 H C-Reactive Protein 7.1 H TSH 0.546
--- NOTE | 2023-04-14 14:14 | PC.NURSE ---
Patient has been pleasant and cooperative today. He has followed directions and has not used any profanity towards us or struck out at us. He has taken his medications, and ate his meals and worked with PT and OT. After speaking with Camryn we discussed the cam boot we had on the patient as he was complaining about it. Really did not have much to offer other than possibly being casted or knee immobilizer when up. We were able to get the boot that he had at home his brought it in and that was placed. Since placement of the home boot he has not complained of much pain and also was doing his home exercises in the chair is what he said as his leg feels better in the different boot.
[2023-04-14] MEDS: THIAMINE 100 MG TABLET PO (17:55)
--- NOTE | 2023-04-14 19:38 | PC.NURSE ---
Nursing Care Hours: [id number] Pt heard in room cussing and talking to self about various topics. When comic book writer entered room, pt was verbally upset about doctors not letting other cancer patients share a room so they could support each other. When asked where his cancer is, he states everywhere. No record of cancer in chart. Cooperative with VS and assisted to edge of bed to use urinal. As day progressed, pt showed to be more calm, cooperative, and alert. Used ceiling lift to move to recliner. Worked with PT/OT on sit to stand on one leg using walker. Able to do 1 assist pivot/hop to BSC and back to bed. VSS. SL. CMS intact. Pain controlled per eMAR. Eating and drinking sufficiently. dropped off pt home boot and Pt immediately felt more comfort and less pain, able to extend and flex leg without yelling out in pain. Pt explained to comic book writer that he was yelling the other night because he couldn't find the call light and was upset that it got stuck in between mattress and railing. Special Education Classroom Aide tied the remote to trapeze so it dangle above pt for easy access. Pt using please and thank you and showing gratitude towards comic book writer and staff. Med BM x1 today. Void x3.
[2023-04-14] MEDS: TRAZODONE HCL 50 MG TABLET PO (20:34)
[2023-04-14] MEDS: SODIUM CHLORIDE 0.9 % (FLUSH) 10 ML SYRINGE 5 ML IVF (20:34)
[2023-04-15] VITALS (7 sets, daily range): BP systolic 96–119; BP diastolic 65–81; PULSE 63–97; RESP 16–18; TEMP 36.6–37.1; O2SAT 96–98
[2023-04-15] MEDS: OXYCODONE 5 MG TABLET 2.5 MG PO ×3 (02:38→10:34)
[2023-04-15] MEDS: ACETAMINOPHEN 500 MG TABLET 1000 MG PO (05:51)
[2023-04-15 06:13] LABS: Hemoglobin* 8.2 gm/dL (13.5-17.5)
[2023-04-15 06:27] LABS: Creatine Kinase* 328 U/L (54-186)
[2023-04-15 06:30] LABS: C Reactive Protein* 5.1 mg/dL (0.5-1.0)
--- NOTE | 2023-04-15 06:46 | PC.NURSE ---
19-: pleasant and cooperative. Used urinal at bedside, declined to get out of bed for weight. Mepi applied to left knee. Bandaid applied to left great toe. Changed dressing to left elbow. Rating pain 2-5/10 in RLE, prn oxy given and Tylenol given.
[2023-04-15] MEDS: IBUPROFEN 400 MG TABLET 800 MG PO ×2 (07:54→12:06)
[2023-04-15] MEDS: METOPROLOL TARTRATE 25 MG TABLET PO (08:53)
[2023-04-15] MEDS: BACLOFEN 10 MG TABLET 40 MG PO (08:53)
[2023-04-15] MEDS: GABAPENTIN 300 MG CAPSULE 600 MG PO (08:53)
[2023-04-15] MEDS: ASPIRIN 81 MG TAB.CHEW PO (08:53)
[2023-04-15] MEDS: FOLIC ACID 1 MG TABLET PO (08:53)
[2023-04-15] MEDS: SODIUM CHLORIDE 0.9 % (FLUSH) 10 ML SYRINGE 5 ML IVF (08:54)
--- NOTE | 2023-04-15 12:36 | PC.SOCIAL ---
Discharge planning: Met with pt regarding MD order for home care for PT/OT and nursing. Pt is requesting home care with [facility]. Faxed referral to [facility] who expects to be able to start care next week. Per MD, start date of next week is acceptable.
--- NOTE | 2023-04-15 13:58 | PC.NURSE ---
Pt calm, talkative, and cooperative during shift. Pt up to chair with Physical therapy. Pt assist of one. Pt had pain ranging from 0-5. Pt?s IV discontinued at 950am; intact. Pt discharging home with . Pt will have home care services starting next week. Pt?s sister to transport home.?
--- NOTE | 2023-04-15 16:18 | P.DS_ITS ---
DS: Providers Provider Time Seen by Provider: : Date Seen: 04/15/23 Date of admission: 04/12/23 09:08 Primary care physician: RASHID RODRIGUEZ DO Admitting Clinician: Will Solano MD Consults: 04/12/23 09:19 Consult to Physician [CONS] Routine Comment: Consulting Provider: Marco Cabrera Has provider been notified: Yes 04/12/23 09:37 Consult to Physician [CONS] Urgent Comment: Consulting Provider: Marco Cabrera Has provider been notified: Yes 04/12/23 09:41 Consult to Occupational Therapy [CONS] Routine Comment: Reason(s) for OT Consult:: Evaluate and Treat Any Restrictions?:: No Restrictions Consult to Physical Therapy [CONS] Routine Comment: Reason(s) for PT Consult:: Evaluate and Treat Any Restrictions?:: No Restrictions Consult to Darkroom Technician [CONS] Routine Comment: Reason for Consult:: Discharge Planning Needs Attending Physician on discharge: Wayne Wright MD Date of Discharge: 04/15/23 DS: Diagnosis Discharge Diagnosis (1) Acute delirium: Status: Acute Problem details: - Multifactorial: Polypharmacy, marijuana, alcohol use and withdrawal. Mental status is much improved today. - concern for ETOH withdrawal; CIWAs started 04/12 and was administered Phenobarbital 04/12. Has not required CIWA interventions for about 24 hours. (2) History of falling: Status: Acute Problem details: Frequent daily falls with evidence of multiple injuries to himself and according to the to the household furniture. This is an acute on chronic problem. Not clear if he is safe to return home. He is advised to be nonweightbearing on his right lower extremity but appears unable to do that. Patient indicates that he is quite anxious to go home. Discussed the possibility of transitional care unit services with patient which he declines. He is willing to consider home physical therapy and occupational therapy. (3) Ataxia: Status: Acute Problem details: Severe especially in the context of nonweightbearing on right lower extremity. (4) Multiple sclerosis: Status: Acute Problem details: Significant underlying contributor to the falls. Recommend he get outpatient follow-up with his neurologist (5) Closed fracture of right tibia and fibula: Status: Acute Problem details: Date of surgery 03/19/2023 . No new fracture or bony injury. Conservative management with nonweightbearing and follow up with Dr. Cabrera. Will ask Orthopedic surgery to comment on immobilization efforts in hospital and at home. (6) Closed fracture of proximal end of right fibula with routine healing: Status: Acute Problem details: 3.5 weeks since injury (7) Closed fracture of lateral malleolus of right ankle with routine healing: Status: Acute Problem details: 3.5 weeks since injury (8) Closed fracture of right tibia: Status: Acute Problem details: 3.5 weeks postop right tib-fib IM rodding. Date of surgery 03/19/2023 (9) Sinus bradycardia: Status: Acute Problem details: Decrease metoprolol dose. (10) Obstructive sleep apnea: Status: Acute (11) Habitual alcohol use: Status: Acute Problem details: Uncertain whether he has continued to use alcohol. Urine drug screen with THC. Concerning that he may have had delirium tremens. Certainly warrants consideration discussion with patient. Consider alcohol dependency assessment with treatment recommendations if warranted. (12) Elevated lactic acid level: Status: Acute Problem details: Patient had elevated lactic acid level, white blood count. Evaluation did not show a definite source of fever or sepsis. Antibiotics were not started but blood in urine cultures have been obtained DS: Summary Hospital Course Hospital Course: Tom Rubio is a 62-year-old man with notable history of MS and prior similar visits for intoxication and altered mental status, presents to the emergency dep artment presently with altered mental status.? On the morning that he presented to the hospital, he was found on the floor by his in their computer room naked and not interacting appropriately.? She called EMS for help.? They brought him into our emergency department for assessment. Roughly 3 weeks prior to this current presentation he had a very similar presentation in which he was found to have a right tib-fib fracture that required surgical repair.? Was told to be nonweightbearing on the affected side.? Per he has not been nonweightbearing on the affected side.? Indeed when he comes in this time he has no apparatus on to indicate that he has been striving to be nonweightbearing. Patient presently initially rather sleepy here.? When awake he was often agitated and fidgety.? When I spoke with his on 04/13/2023 she indicated that he routinely he sleeps a lot in their home and does have episodes of being fidgety but he was clearly more sleepy now than what he normally is. In consequence of the same we decreased a number of medications significantly including gabapentin and trazodone. Our suspicion was that his delirium was multifactorial including from polypharmacy, alcohol and marijuana consumption at home, possible delirium tremens. No evidence of sepsis. When I 1st assessed him he was quite sleepy.? I would call out his name and he responded only by opening his eyes briefly and grunting.? Moved all 4 extremities.? He had no obvious focal motor neurologic deficits noted.? Had multiple stages of contusions, ecchymoses, abrasions, and laceration on his sc alp arms and legs. Subsequently he was much more awake, interactive, and not at all agitated.? Able to engage in conversation.? Notes that he has discomfort on his affected right lower extremity from the Cam boot that as presently on him.? When we loosen this or remove it he states the discomfort is resolved.? He is hungry and thirsty today.? Eating and drinking today.? Denies nausea or vomiting.? Expresses desire to go home.? Willing to talk about it.? Working with physical therapy, occupational therapy, nursing staff.? More engaged. Actually agreeable to accept home care with Physical therapy, Occupational therapy, and nursing. Declines recommendation for residential facility transitional care services for a short period of time. Agreeable to follow up as specified below. Status at Discharge Functional status at discharge: uses cane/walker Overall status at discharge: patient is back to baseline Time Spent with Patient Time attestation: Total time spent providing and/or coordinating discharge services: Time spent: Greater than 30 minutes Exam Narrative: Exam Narrative: Appears comfortable and in no acute distress sitting in recliner chair at side of bed. Vision and hearing are grossly normal.? Alert, oriented to self, place, time, situation. Has little recall about events that have transpired over the last few days. Articulate, cooperative.? Willing to work with staff today. T-max 2 days prior to discharge was 100.3? F.? He is afebrile since. At rest patient had tachycardia last night which is now resolved. At rest yesterday, patient also had periods of hypertension.? Resolved now. Lungs are clear to auscultation.? Heart tones with regular rhythm, normal S1-S2.? No murmur, gallop, or rub.? Abdomen with active bowel sounds, soft, nontender. Moves all 4 extremities. Skin with multiple ecchymoses around face scalp upper and lower extremities.? No obvious areas of fluctuance, induration, erythema, or warmth.? No obvious areas of rash, petechiae, or open wounds. Const: Vital Signs, click to edit/add: Vital Signs - 24 hr 04/14/23 19:00 04/14/23 20:59 04/14/23 22:03 Temperature 98.2 F 98.2 F Pulse Rate Pulse Rate [Pulse Oximeter] 92 92 Respiratory Rate 18 18 18 Blood Pressure Blood Pressure [Le ft Arm] 150/79 H 150/79 H Blood Pressure [Ri ght Arm] Pulse Oximetry 98 98 Oxygen Delivery Me thod Room Air Room Air Oxygen Flow Rate 2 04/14/23 22:49 04/14/23 23:32 04/15/23 01:00 Temperature 98.7 F 98.7 F Pulse Rate Pulse Rate [Pulse Oximeter] 63 63 Respiratory Rate 18 18 Blood Pressure Blood Pressure [Le ft Arm] Blood Pressure [Ri ght Arm] 97/63 96/65 96/65 Pulse Oximetry 97 97 Oxygen Delivery Me thod Room Air Room Air Oxygen Flow Rate 04/15/23 02:41 04/15/23 02:42 04/15/23 07:45 Temperature 98.6 F 98.6 F 97.9 F Pulse Rate Pulse Rate [Pulse Oximeter] 63 63 78 Respiratory Rate 18 18 16 Blood Pressure Blood Pressure [Le ft Arm] Blood Pressure [Ri ght Arm] 114/73 114/73 111/65 Pulse Oximetry 96 96 98 Oxygen Delivery Me thod Room Air Room Air Room Air Oxygen Flow Rate 2 04/15/23 09:09 04/15/23 11:20 04/15/23 12:36 Temperature 97.9 F 98.6 F 98.6 F Pulse Rate 85 Pulse Rate [Pulse Oximeter] 78 97 Respiratory Rate 16 16 16 Blood Pressure 119/81 Blood Pressure [Le ft Arm] Blood Pressure [Ri ght Arm] 111/65 113/75 Pulse Oximetry 98 97 Oxygen Delivery Me thod Room Air Room Air Oxygen Flow Rate Documenting provider has reviewed patient's vital signs: yes DS: Data Data Completed and Pending Completed studies during hospitalization: Procedures Reposition Right Tibia with Intramedullary Internal Fixation Device, Open Approach (03/19/23) Labs on day of discharge: Labs from last 24 hours 04/15/23 05:45 Hgb 8.2 L Total Creatine Kinase 328 H C-Reactive Protein 5.1 H Preliminary micro results at discharge 04/12/23 11:11 Blood Culture - Preliminary Blood NO GROWTH AFTER 72 HOURS 04/12/23 11:05 Blood Culture - Preliminary Blood NO GROWTH AFTER [address] scan - head: Attestation: I have reviewed the pertinent imaging results. Radiologist's impression: 04/12/2023, IMPRESSION: Left convexity subgaleal hematoma without fracture or intracranial hemorrhage. CT cervical spine: Radiologist's impression: 04/12/2023, IMPRESSION: 1. No sign of acute injury. 2. Multilevel degenerative spondylosis. Chest x-ray: Radiologist's impression: No acute abnormalities noted. Right ankle x-ray: Radiologist's impression: 04/12/2023, Findings: Bones: There is hardware fixation of the nondisplaced distal tibia fracture. Nondisplaced fracture also again demonstrated in the distal fibula. No new osseous abnormality. No new findings to explain pain. Joint spaces: Unremarkable. Soft tissues: Unremarkable. Right tib-fib x-ray: Radiologist's impression: 04/12/2023, Impression: Status post ORIF of distal tibial diaphyseal fracture with near anatomic alignment and intact hardware. Mildly displaced fractures of the distal fibula and proximal fibula again noted. Discharge Plan Discharge Disposition: Home, Self-Care Date of Admission: 04/12/23 09:08 Attending Provider on Discharge: Wayne Wright Consulting Providers: Marco Cabrera Primary Care Provider: RASHID RODRIGUEZ Condition: Improved Anticipated Discharge Date/Time: 04/15/23 13:00 Discharge Medications: New trazodone 50 mg Tablet 50 mg PO HS 30 Days Qty: 30 0RF gabapentin 300 mg Capsule 600 mg PO TID 30 Days Qty: 180 0RF folic acid 1 mg Tablet 1 mg PO DAILY 30 Days Qty: 30 0RF metoprolol tartrate 25 mg Tablet 25 mg PO BID 30 Days Qty: 60 0RF Continued aspirin 81 mg tablet,chewable 81 mg PO BID Qty: 60 0RF ibuprofen 800 mg tablet 800 mg PO TID baclofen 20 mg tablet 40 mg PO TID acetaminophen 500 mg capsule 500 - 1,000 mg PO Q6H MDD 4000mg per day PRN (Reason: pain) Qty: 100 0RF Discontinued gabapentin 400 mg capsule 1,200 mg PO TID metoprolol tartrate 50 mg tablet 50 mg PO BID trazodone 100 mg tablet 100 mg PO QPM Discharge Orders: Discharge Order (Routine); Ordered 04/15/23 Ordered By: Wayne Wright Patient Education: Metoprolol (By mouth), Trazodone (By mouth), Folic Acid (By mouth), Gabapentin (By mouth), Acute Delirium (DC), Alcohol Withdrawal (DC), Altered Mental Status (GEN), Fall Prevention (DC) Additional Instructions: 1. Follow up with Dr. Rodriguez in 1-2 weeks; 2. Follow-up with Dr. Cabrera as previously set up by him, and call or sooner if needed; 3. Apply right CAM boot whenever mobile and non-weight bearing of right lower extremity at all times per Dr. Cabrera; 4. Discontinue all alcohol exposure due to interaction with your medicines; 5. Home care with PT, OT, nursing - home safety assess and recommend, evaluate and treat, with nursing to assist with medication management, and support off- loading of affected right lower extremity. Activity Level: Activity as Tolerated and Use Walker Activity Detail: Non-weight bearing on right leg until otherwise directed per your orthopedic surgeon, . Discharge Diet: Regular Follow Up Appointments: RASHID RODRIGUEZ DO [Primary Care Provider] - 04/22/23 11:25 am ([facility] for follow-up. Please bring all insurance cards to appointment.) Forms: [employer] Info Instructions
== END 2023-04-15 13:10 | disposition home or self-care (01) ==
LOC: ED 08:21 → MEDSURG 09:10
PROVIDERS: Internal Medicine; Admitting Provider Family Medicine; Emergency Provider Family Medicine; PCP Student in an Organized Health Care Education/Training Program; Visit Provider Family Medicine
DX: R41.82 Altered mental status, unspecified (principal); G35 Multiple sclerosis; R79.89 Other specified abnormal findings of blood chemistry; D72.829 Elevated white blood cell count, unspecified; R74.02 Elevation of levels of lactic acid dehydrogenase [LDH]; R27.0 Ataxia, unspecified; M62.82 Rhabdomyolysis; G89.29 Other chronic pain; F12.90 Cannabis use, unspecified, uncomplicated; F10.139 Alcohol abuse with withdrawal, unspecified; R00.1 Bradycardia, unspecified; G47.33 Obstructive sleep apnea (adult) (pediatric); M25.571 Pain in right ankle and joints of right foot; I10 Essential (primary) hypertension; T07.XXXA Unspecified multiple injuries, initial encounter; S82.201A Unspecified fracture of shaft of right tibia, initial encounter for closed fracture; S82.401A Unspecified fracture of shaft of right fibula, initial encounter for closed fracture; S82.831D Other fracture of upper and lower end of right fibula, subsequent encounter for closed fracture with routine healing; S82.61XD Displaced fracture of lateral malleolus of right fibula, subsequent encounter for closed fracture with routine healing; Z87.891 Personal history of nicotine dependence; Z79.82 Long term (current) use of aspirin; Z79.899 Other long term (current) drug therapy; Z98.52 Vasectomy status; Z89.411 Acquired absence of right great toe; Z98.890 Other specified postprocedural states; Z87.19 Personal history of other diseases of the digestive system; Z96.642 Presence of left artificial hip joint
CPT/HCPCS: 36415; 70450; 71045; 72125; 73590; 73600; 80048; 80053; 80306; 81003; 81015; 82077; 82140; 82550; 82803; 83605; 83735; 84100; 84443; 84484; 85018; 85025; 85027; 85610; 86140; 87040; 87086; 93005; 96361; 96365; 96366; 96375; 96376; 97110; 97116; 97162; 97165; 97530; 97535; 99284; 99291; A9270; G0378; G0390; J2060; J2270; J2560; J7030; J7050; J7120; S0166

== ENCOUNTER 2023-06-10 09:07 | Outpatient (CLI) | payer OTHER, SELFPAY ==
--- NOTE | 2023-06-10 08:01 | W.ANESCHARGE ---
Anesthesia Charges Start Date/Time Anesthesia Start Date: 06/10/23 Anesthesia Start Time: 10:33 Stop Date/Time Anesthesia Stop Date: 06/10/23 Anesthesia Stop Time: 10:53
--- NOTE | 2023-06-10 14:55 | W.ANESCHARGE ---
Anesthesia Charges Start Date/Time Anesthesia Start Date: 06/10/23 Anesthesia Start Time: 10:33 Stop Date/Time Anesthesia Stop Date: 06/10/23 Anesthesia Stop Time: 10:53
== END 2023-06-10 09:08 | disposition home or self-care (01) ==
LOC: OP CLINIC 09:07
PROVIDERS: PCP Student in an Organized Health Care Education/Training Program; Visit Provider Internal Medicine Gastroenterology
DX: Z12.11 Encounter for screening for malignant neoplasm of colon (principal)
CPT/HCPCS: 00811; 00813; 45378; J2704

== ENCOUNTER 2025-07-26 18:49 | Outpatient (CLI) | payer MEDICARE, SELFPAY | END 2025-07-26 18:50 | disposition home or self-care (01) | LOC: AMB 07-28 09:18 | PROVIDERS: PCP Student in an Organized Health Care Education/Training Program; Visit Provider Emergency Medicine Emergency Medical Services | DX: F29 Unspecified psychosis not due to a substance or known physiological condition (principal) | CPT/HCPCS: A0425; A0429 ==